=== PATIENT | female | born 1940 | race Caucasian/White ===

== ENCOUNTER 2017-12-10 14:48 | Inpatient (IN) | payer MEDICARE, OTHER ==
--- NOTE | 2017-12-10 15:24 | ED ---
General Adult HPI <RudiYvon - Last Filed: 12/10/17 16:27> - General Source: patient, RN notes reviewed Mode of arrival: ambulatory Limitations: no limitations <Randa Grayson - Last Filed: 12/10/17 18:50> - General Chief complaint: Animal Bite Stated complaint: cat bite Time Seen by Provider: 12/10/17 15:00 - History of Present Illness Initial comments: Patient is a 77-year-old female with history of carpal tunnel and diabetes who presents to the emergency department with her niece with complaints of a cat bite to her right hand that happened 3 days ago. She has seen her doctor and was given a shot of Augmentin and started on oral Augmentin as well. The oral Augmentin gave her diarrhea and it was stopped. She was given another shot of Augmentin by her physician yesterday. She has been using Bactrim ointment over the wound. She was told to come here as she may need IV antibiotics because the redness and swelling have worsened. Her last Tetanus was 2012. The cat was her own and is up to date on its vaccines, including rabies. She admits to numbness of her right fingers, which is chronic. Patient denies any recent fever , chills, shortness of breath, chest pain, back pain, abdominal pain, tingling, headaches or visual changes, or any other complaints. (Randa Grayson) - Related Data Home Medications Medication Instructions Recorded Confirmed Atorvastatin [Lipitor] 40 mg PO HS 12/14/13 12/10/17 Docusate Sodium [Dulcolax Stool 100 mg PO Q48H 12/14/13 12/10/17 Softener] Isosorbide Mononitrate [Imdur] 30 mg PO HS 12/14/13 12/10/17 Potassium Chloride [Klor-Con 20] 20 meq PO DAILY@1200 12/14/13 12/10/17 Verapamil HCl [Verapamil ER] 180 mg PO HS 12/14/13 12/10/17 rOPINIRole HCL [Requip] 0.25 mg PO BID@0800,1200 12/14/13 12/10/17 Multivitamins, Thera [Theragran] 1 tab PO DAILY@1200 11/15/14 12/10/17 Furosemide [Lasix] 20 mg PO DAILY@0800 05/12/15 12/10/17 Lansoprazole 30 mg PO BID 05/12/15 12/10/17 sitaGLIPtin PHOS/metFORMIN HCL 1 tab PO BID 05/12/15 12/10/17 [Janumet 50-500 mg Tablet] Cholecalciferol (Vitamin D3) 2,000 unit PO DAILY 12/10/17 12/10/17 [Vitamin D3] Dulaglutide [Trulicity] 0.75 mg SQ Q7D 12/10/17 12/10/17 Famotidine 40 mg PO DAILY@0800 12/10/17 12/10/17 Gabapentin [Neurontin] 300 mg PO BID 12/10/17 12/10/17 Levothyroxine Sodium [Synthroid] 137 mcg PO DAILY 12/10/17 12/10/17 Losartan [Cozaar] 25 mg PO DAILY@0800 12/10/17 12/10/17 metFORMIN HCL [Glucophage] 500 mg PO BID 12/10/17 12/10/17 rOPINIRole HCL [Requip] 0.5 mg PO HS 12/10/17 12/10/17 Allergies Allergy/AdvReac Type Severity Reaction Status Date / Time pantoprazole Allergy Unknown Rash/Hives Verified 12/10/17 15:57 glyxamber Allergy Rash/Hives Uncoded 12/10/17 14:55 Review of Systems ROS Other: All systems not noted in ROS Statement are negative. <Yvon Grijalva - Last Filed: 12/10/17 16:27> ROS Other: All systems not noted in ROS Statement are negative. <Randa Grayson - Last Filed: 12/10/17 18:50> ROS Statement: Those systems with pertinent positive or pertinent negative responses have been documented in the HPI. Past Medical History Past Medical History: Cancer, CVA/TIA, Diabetes Mellitus, GERD/Reflux, Hearing Disorder / Deafness, Hypertension, Pneumonia, Thyroid Disorder Additional Past Medical History / Comment(s): Possible TIA-no weakness or paralysis, vaginal cancer, chronic yeast infection in abdominal fold, neuropathy both legs, mary alice carpal tunnel, arthritis, frequent UTI's, arrythmia, Swelling in legs and feet, Hx of cellulitis legs, Barretts esophagus. , Pneumonia (2014), [place] (cannot wear her hearing aids because of ringing in her ears. History of Any Multi-Drug Resistant Organisms: None Reported Past Surgical History: Appendectomy, Section, Hysterectomy Additional Past Surgical History / Comment(s): removal of vaginal tumor, cataract bilateral , vaginal ablation x2. Past Anesthesia/Blood Transfusion Reactions: No Reported Reaction Additional Past Anesthesia/Blood Transfusion Reaction / Comment(s): family hx unknown. PATIENTS HAS PROBLEM WITH HYPOGLYCEMIA EPISODE WHEN COMING OUT OF SURGERY. Past Psychological History: No Psychological Hx Reported Smoking Status: Never smoker Past Alcohol Use History: None Reported Past Drug Use History: None Reported - Past Family History Mother Family Medical History: CVA/TIA Father Family Medical History: Coronary Artery Disease (CAD) <Randa Grayson - Last Filed: 12/10/17 18:50> General Exam Limitations: no limitations General appearance: alert, in no apparent distress Head exam: Present: atraumatic, normocephalic Eye exam: Present: normal appearance, PERRL ENT exam: Present: normal oropharynx Respiratory exam: Present: normal lung sounds bilaterally Cardiovascular Exam: Present: regular rate, normal rhythm, other (Radial pulses are palpable and strong bilaterally.) GI/Abdominal exam: Present: soft, normal bowel sounds Extremities exam: Present: normal capillary refill, other (Some limitation of finger flexion of right hand due to swelling.) Neurological exam: Present: alert, oriented X3 Psychiatric exam: Present: normal affect, normal mood Skin exam: Present: warm, dry, other (Right hand with scab over posterior aspect. The right posterior hand is erythematous, edematous and tender to palpation. She reports numbness to the right little finger during the examination.) <Randa Grayson - Last Filed: 12/10/17 18:50> Course <Yvon Grijalva - Last Filed: 12/10/17 16:27> <Randa Grayson - Last Filed: 12/10/17 18:50> Vital Signs 12/10/17 12/10/17 14:50 17:36 Temperature 97.5 F L Pulse Rate 105 H 90 Respiratory 18 18 Rate Blood Pressure 164/87 144/97 O2 Sat by Pulse 98 95 Oximetry - Reevaluation(s) Reevaluation #1: 12/10/17 16:27 Patient reevaluated by myself, Dr. Grijalva. Patient does have puncture wound right dorsal mid hand with cellulitic changes extending to the right forearm. Patient updated on results and plan. Patient does meet sepsis criteria diagnosed at 1600. Blood culture and lactic acid and IV antibiotics and fluid boluses have all been ordered. Case was discussed in detail with Dr. Mustafa, who will admit for Dr. Lau. (Yvon Grijalva) Medical Decision Making - Lab Data Result diagrams: 12/10/17 15:41 12/10/17 15:41 <Yvon Grijalva - Last Filed: 12/10/17 16:27> - Lab Data Result diagrams: 12/10/17 15:41 12/10/17 15:41 <Randa Grayson - Last Filed: 12/10/17 18:50> - Medical Decision Making Patient is a 77 year old female with a cat bite. WBC 11.2. Venous Plasma Lactic Acid 2.9. Glucose 177. Hand X-ray reveals dorsal soft tissue swelling; otherwise negative. Patient started on Unasyn. Will be admitted to inpatient. Case discussed in detail with attending physician Dr. Grijalva. (Randa Grayson ) - Lab Data Lab Results 12/10/17 12/10/17 12/10/17 Range/Units 15:41 15:41 15:41 WBC 11.2 H (3.8-10.6) k/uL RBC 4.20 (3.80-5.40) m/uL Hgb 13.1 (11.4-16.0) gm/dL Hct 40.0 (34.0-46.0) % MCV 95.4 (80.0-100.0) fL MCH 31.2 (25.0-35.0) pg MCHC 32.8 (31.0-37.0) g/dL RDW 12.8 (11.5-15.5) % Plt Count 289 (150-450) k/uL Neutrophils % 74 % Lymphocytes % 9 % Monocytes % 14 % Eosinophils % 2 % Basophils % 0 % Neutrophils # 8.2 H (1.3-7.7) k/uL Lymphocytes # 1.0 (1.0-4.8) k/uL Monocytes # 1.6 H (0-1.0) k/uL Eosinophils # 0.2 (0-0.7) k/uL Basophils # 0.0 (0-0.2) k/uL Sodium 139 (137-145) mmol/L Potassium 4.5 (3.5-5.1) mmol/L Chloride 100 (98-107) mmol/L Carbon Dioxide 25 (22-30) mmol/L Anion Gap 14 mmol/L BUN 18 H (7-17) mg/dL Creatinine 0.61 (0.52-1.04) mg/dL Est GFR (CKD-EPI)AfAm >90 (>60 ml/min/1.73 sqM) Est GFR (CKD-EPI)NonAf 89 (>60 ml/min/1.73 sqM) Glucose 177 H (74-99) mg/dL Plasma Lactic Acid Bob 2.9 H* (0.7-2.0) mmol/L Calcium 9.8 (8.4-10.2) mg/dL Total Bilirubin 0.8 (0.2-1.3) mg/dL AST 21 (14-36) U/L ALT 19 (9-52) U/L Alkaline Phosphatase 77 (38-126) U/L Total Protein 7.7 (6.3-8.2) g/dL Albumin 4.1 (3.5-5.0) g/dL Disposition <Yvon Grijalva - Last Filed: 12/10/17 16:27> Is patient prescribed a controlled substance at d/c from ED?: No Time of Disposition: 17:21 <Randa Grayson - Last Filed: 12/10/17 18:50> Clinical Impression: Cat bite Disposition: ADMITTED IP TO THIS HOSP Condition: Good
[2017-12-10] MEDS ORDERED: SODIUM CHLORIDE 0.9% 500 ML 500 ML IV STA (15:30)
[2017-12-10] MEDS ORDERED: SODIUM CHLORIDE 0.9% 1,000 ML IV STA ×2 (15:30→16:25)
[2017-12-10 15:54] LABS: Basophils % (A) 0 %; Eosinophils # (A) 0.2 k/uL (0-0.7); Eosinophils % (A) 2 %; HGB 13.1 gm/dL (11.4-16.0); Lymphocytes % (A) 9 %; MCH 31.2 pg (25.0-35.0); MCHC 32.8 g/dL (31.0-37.0); MCV 95.4 fL (80.0-100.0); Mean Platelet Volume 8.3; Monocytes # (A) 1.6 k/uL (0-1.0); Monocytes % (A) 14 %; Neutrophils # (A) 8.2 k/uL (1.3-7.7); Neutrophils % (A) 74 %; Platelet Count 289 k/uL (150-450); RDW 12.8 % (11.5-15.5); WBC 11.2 k/uL (3.8-10.6)
[2017-12-10 16:01] LABS: ALT 19 U/L (9-52); AST 21 U/L (14-36); Albumin 4.1 g/dL (3.5-5.0); Alkaline Phosphatase 77 U/L (38-126); Anion Gap 14 mmol/L; Blood Urea Nitrogen 18 mg/dL (7-17); Calcium 9.8 mg/dL (8.4-10.2); Carbon Dioxide 25 mmol/L (22-30); Chloride 100 mmol/L (98-107); Glucose 177 mg/dL (74-99); Potassium 4.5 mmol/L (3.5-5.1); Sodium 139 mmol/L (137-145); Total Bilirubin 0.8 mg/dL (0.2-1.3); Total Protein 7.7 g/dL (6.3-8.2)
[2017-12-10] MEDS ORDERED: AMPICILLIN-SULBACTAM 3 GM in SODIUM CHLORIDE 0.9% 100 ML IVPB STA (16:30)
--- NOTE | 2017-12-10 16:30 | XR ---
EXAMINATION TYPE: XR hand complete RT DATE OF EXAM: 12/10/2017 CLINICAL HISTORY: pain TECHNIQUE: Frontal, lateral and oblique images of the right hand are obtained. COMPARISON: None. FINDINGS: There is no acute fracture/dislocation evident. The joint spaces appear narrowed. Dorsal s oft tissue swelling noted which may reflect cellulitis. No radiopaque foreign body seen. IMPRESSION: There is no acute fracture or dislocation ICD 10 NO FRACTURE, INITIAL EVALUATION
[2017-12-10] MEDS ORDERED: NALOXONE 0.4 MG/ML 1 ML VIAL IV PRN (17:22)
[2017-12-10 21:38] LABS: Glucose,Whole Blood 159 mg/dL (75-99)
[2017-12-10] MEDS ORDERED: VANCOMYCIN IV PER PHARMACY 1 EACH MISC MISCELLANE PRN (21:38)
[2017-12-10] MEDS ORDERED: MELATONIN 3 MG TABLET PO PRN (21:39)
[2017-12-10] MEDS ORDERED: ONDANSETRON 4 MG/2 ML VIAL IVP PRN (21:39)
[2017-12-10] MEDS ORDERED: ACETAMINOPHEN TAB 325 MG TAB PO PRN (21:39)
[2017-12-10] MEDS ORDERED: LACTULOSE 20 GM/30 ML CUP PO PRN (21:39)
[2017-12-10] MEDS ORDERED: MAGNESIUM HYDROXIDE 2,400 MG/10 ML CUP PO PRN (21:39)
[2017-12-10] MEDS ORDERED: CALCIUM CARBONATE 500 MG CHEWABLE PO PRN (21:39)
[2017-12-10] MEDS ORDERED: ALPRAZolam 0.25 MG TAB PO PRN (21:39)
--- NOTE | 2017-12-10 23:22 | HP ---
HISTORY AND PHYSICAL DATE OF ADMISSION: 12/10/2017 DATE OF SERVICE: 12/10/2017 PRESENTING COMPLAINT: Cat bite. HISTORY OF PRESENTING COMPLAINT: This is a very pleasant 77-year-old patient of Dr. Lau. Chronic stable medical conditions include diabetes, GERD, hard of hearing, hyperlipidemia, hypertension, peripheral neuropathy, osteoarthritis, Freeman's esophagus, restless legs syndrome. The patient has got a cat that she has had for 3 years, was sleeping next to it. The patient moved her right arm to hold the cat while sleeping and the cat bit the arm 3 days ago. The patient went down to see her family doctor, was given an IV/IM injection, returned home. The next day patient went again, was given Augmentin. Patient started throwing up with the Augmentin. Hand started getting worse. Took her back. Patient was then sent in because the right hand pain and swelling was getting worse. There was no fever, no chills. Having failed outpatient treatment, right hand is swollen, rather painful, including some of the fingers, and redness is going more proximally. Patient was given IV Unasyn in the ER. There was no obvious fever at home. REVIEW OF SYSTEMS: CONSTITUTIONAL: Tired. HEENT: Decreased hearing. RESPIRATORY: None. CARDIOVASCULAR: None. GASTROINTESTINAL: Heartburn. GENITOURINARY: None. MUSCULOSKELETAL: None. DERMATOLOGICAL: As above. LYMPHATICS: None. PSYCHIATRY: None. NEUROLOGICAL: Numbness and tingling in the feet. PAST MEDICAL HISTORY: 1. TIA. 2. Diabetes. 3. GERD. 4. Hard of hearing. 5. Hypertension. 6. Hypothyroidism. 7. Vaginal cancer. 8. Peripheral neuropathy. 9. Osteoarthritis. 10.Freeman's esophagus. 11.Restless legs syndrome. PAST SURGICAL HISTORY: 1. Appendectomy. 2. . 3. Hysterectomy. 4. Removal of vaginal tumor. 5. Cataract, bilateral. SOCIAL HISTORY: No smoking. No alcohol. Lives with her handicapped daughter. FAMILY HISTORY: Stroke. HOME MEDICATIONS: 1. Janumet 50/500 one tablet p.o. b.i.d. 2. Requip 0.5 mg at bedtime and 0.25 mg p.o. b.i.d. 3. Glucophage 500 mg p.o. b.i.d. 4. Verapamil ER 180 mg at bedtime. 5. Klor-Con 20 mEq p.o. daily. 6. Theragran 1 tablet p.o. daily. 7. Cozaar 25 mg daily. 8. Synthroid 137 mcg p.o. daily. 9. Lansoprazole 30 mg p.o. b.i.d. 10.Imdur 30 mg at bedtime. 11.Neurontin 300 mg b.i.d. 12.Lasix 20 mg p.o. daily. 13.Pepcid 40 mg p.o. daily. 14.Trulicity 0.75 mg subcutaneously q.7 days. 15.Colace 100 mg q.48 hours. 16.Vitamin D3 2000 units p.o. daily. 17.Lipitor 40 mg at bedtime. ALLERGIES: 1. PANTOPRAZOLE. 2. GLYXAMBER. PHYSICAL EXAMINATION: Temperature 97.5, pulse 105, respiration 18, blood pressure 164/87, pulse ox 98% on room air. GENERAL APPEARANCE: Average build. Lying in bed, awake. EYES: Pupils equal. Conjunctivae normal. HEENT: External appearance of nose and ears normal. Oral cavity normal. Decreased hearing. NECK: JVD not raised. Mass not palpable. RESPIRATORY: Effort normal. LUNGS: Fair air entry. CARDIOVASCULAR: First and second sounds normal. No edema. ABDOMEN: Soft, non-tender. Liver and spleen not palpable. LYMPHATIC: No lymph node palpable in neck or axillae. PSYCHIATRY: Alert and oriented x3. Mood and affect normal. DERMATOLOGICAL/MUSCULOSKELETAL: Right hand is swollen. There is a bite miriam in the dorsum of the hand. There is swelling on the dorsum extending to the proximal part of the fingers and the distal part of the forearm, redness, tenderness. Patient has got some movement in the fingers. INVESTIGATIONS: White count 11.2, hemoglobin 13.1, potassium 4.5, BUN 18, creatinine 0.61. ASSESSMENT: 1. Acute right hand cellulitis; could be superficial abscess following a cat bite. Having failed outpatient antibiotic injection and not able to tolerate oral Augmentin, was hence admitted for the same. Patient was started on IV Unasyn. Will also add IV vancomycin. Will also use Silvadene dressing with Kerlix and Chaitanya wrap and keep the right arm elevated. We will also add naproxen for anti- inflammatory benefit. 2. Diabetes mellitus, type 2, on oral hypoglycemic. 3. Gastroesophageal reflux disease. 4. Hard of hearing. 5. Essential hypertension. 6. Hypothyroidism. 7. Peripheral neuropathy from diabetes. 8. Primary osteoarthritis. 9. Freeman's esophagus. 10.Restless legs syndrome. PLAN: Home medications are resumed. Antibiotics and local wound care as above. Will also get orthopedic opinion to see if anything needs to be drained. Care was discussed with the patient and niece at the bedside. Questions were answered. MMJENNIFERL / IJN: [id number] /
[2017-12-10] MEDS: metFORMIN 500 MG TAB PO SCH (23:42)
[2017-12-10] MEDS: VERAPAMIL SR 180 MG TABLET.ER PO SCH (23:42)
[2017-12-10] MEDS: ISOSORBIDE MONONITRATE ER 30 MG TAB.ER.24H PO SCH (23:42)
[2017-12-10] MEDS: GABAPENTIN 300 MG CAP PO SCH (23:42)
[2017-12-10] MEDS: ATORVASTATIN 40 MG TAB PO SCH (23:42)
[2017-12-10] MEDS: SODIUM CHLORIDE 0.9% 1,000 ML IV SCH (23:42)
[2017-12-10] MEDS: NAPROXEN 250 MG TAB PO SCH (23:43)
[2017-12-10] MEDS: ENOXAPARIN 40 MG/0.4 ML SYRINGE SQ SCH (23:43)
[2017-12-10] MEDS: AMPICILLIN-SULBACTAM 3 GM in SODIUM CHLORIDE 0.9% 100 ML IVPB SCH (23:57)
[2017-12-11] MEDS: VANCOMYCIN 1,500 MG in SODIUM CHLORIDE 0.9% 250 ML IVPB SCH ×3 (00:36→20:04)
[2017-12-11] MEDS: AMPICILLIN-SULBACTAM 3 GM in SODIUM CHLORIDE 0.9% 100 ML IVPB SCH ×4 (06:37→23:18)
[2017-12-11] MEDS: LEVOTHYROXINE 137 MCG TAB PO SCH (06:39)
[2017-12-11 07:02] LABS: Glucose,Whole Blood 178 mg/dL (75-99)
[2017-12-11] MEDS ORDERED: LANSOPRAZOLE 30 MG PO SCH ×2 (07:30→14:00)
[2017-12-11] MEDS: NAPROXEN 250 MG TAB PO SCH ×3 (07:56→20:04)
[2017-12-11] MEDS: GABAPENTIN 300 MG CAP PO SCH ×2 (07:57→20:04)
[2017-12-11] MEDS: LOSARTAN 25 MG TAB PO SCH (07:57)
[2017-12-11] MEDS: LINAGLIPTIN 5 MG TABLET PO SCH (07:57)
[2017-12-11] MEDS: FAMOTIDINE 20 MG TAB PO SCH (07:57)
[2017-12-11] MEDS: metFORMIN 500 MG TAB PO SCH ×2 (07:57→17:18)
--- NOTE | 2017-12-11 09:50 | P.CNOR ---
History of Present Illness - HPI Consult date: 12/11/17 History of present illness: This is a 77-year-old female who is admitted for an infection in right hand. Patient states that she was petting her cat 3 days ago and it bit her. Patient states that she started to have pain and swelling in the right wrist. Patient failed outpatient treatment and infection was worsening so she was admitted for IV antibiotics. Orthopedics is consulted for surgical evaluation. Patient denies any numbness, weakness, tingling, fever or chills. Review of Systems See HPI. Past Medical History Past Medical History: Cancer, CVA/TIA, Diabetes Mellitus, GERD/Reflux, Hearing Disorder / Deafness, Hypertension, Pneumonia, Thyroid Disorder Additional Past Medical History / Comment(s): Possible TIA-no weakness or paralysis, vaginal cancer, chronic yeast infection in abdominal fold, neuropathy both legs, mary alice carpal tunnel, arthritis, frequent UTI's, arrythmia, Swelling in legs and feet, Hx of cellulitis legs, Barretts esophagus. , Pneumonia (2013), [place] ( hearing aids no longer work for her), ringing in her ears. History of Any Multi-Drug Resistant Organisms: None Reported Past Surgical History: Appendectomy, Section, Hysterectomy Additional Past Surgical History / Comment(s): removal of vaginal tumor, cataract bilateral , vaginal ablation x2.egd/colonoscopy Past Anesthesia/Blood Transfusion Reactions: No Reported Reaction Additional Past Anesthesia/Blood Transfusion Reaction / Comm: family hx unknown. PATIENTS HAS PROBLEM WITH HYPOGLYCEMIA EPISODE WHEN COMING OUT OF SURGERY. Smoking Status: Never smoker - Past Family History Mother Family Medical History: CVA/TIA Father Family Medical History: Coronary Artery Disease (CAD) Medications and Allergies Home Medications Medication Instructions Recorded Confirmed Type Atorvastatin [Lipitor] 40 mg PO HS 12/14/13 12/10/17 History Docusate Sodium [Dulcolax Stool 100 mg PO Q48H 12/14/13 12/10/17 History Softener] Isosorbide Mononitrate [Imdur] 30 mg PO HS 12/14/13 12/10/17 History Potassium Chloride [Klor-Con 20] 20 meq PO DAILY@1200 12/14/13 12/10/17 History Verapamil HCl [Verapamil ER] 180 mg PO HS 12/14/13 12/10/17 History rOPINIRole HCL [Requip] 0.25 mg PO BID@0800,1200 12/14/13 12/10/17 History Multivitamins, Thera [Theragran] 1 tab PO DAILY@1200 11/15/14 12/10/17 History Furosemide [Lasix] 20 mg PO DAILY@0800 05/12/15 12/10/17 History Lansoprazole 30 mg PO BID 05/12/15 12/10/17 History sitaGLIPtin PHOS/metFORMIN HCL 1 tab PO BID 05/12/15 12/10/17 History [Janumet 50-500 mg Tablet] Cholecalciferol (Vitamin D3) 2,000 unit PO DAILY 12/10/17 12/10/17 History [Vitamin D3] Dulaglutide [Trulicity] 0.75 mg SQ Q7D 12/10/17 12/10/17 History Famotidine 40 mg PO DAILY@0800 12/10/17 12/10/17 History Gabapentin [Neurontin] 300 mg PO BID 12/10/17 12/10/17 History Levothyroxine Sodium [Synthroid] 137 mcg PO DAILY 12/10/17 12/10/17 History Losartan [Cozaar] 25 mg PO DAILY@0800 12/10/17 12/10/17 History metFORMIN HCL [Glucophage] 500 mg PO BID 12/10/17 12/10/17 History rOPINIRole HCL [Requip] 0.5 mg PO HS 12/10/17 12/10/17 History Allergies Allergy/AdvReac Type Severity Reaction Status Date / Time pantoprazole Allergy Unknown Rash/Hives Verified 12/10/17 15:57 glyxamber Allergy Rash/Hives Uncoded 12/10/17 14:55 Physical Examination On exam patient is alert resting comfortably in bed in no acute distress. Dressing is removed revealing a small puncture wound to the dorsum of the right hand. There is surrounding erythema and mild swelling. Patient has pain with range of motion of the wrist and hand. Compartments are soft. Sensation is intact. Neurovascular status and circulatory status are intact. Results X-rays of the right hand are negative for any fracture or foreign body. - Labs Labs: Abnormal Lab Results - Last 24 Hours (Table) 12/10/17 12/10/17 12/10/17 Range/Units 15:41 15:41 15:41 WBC 11.2 H (3.8-10.6) k/uL Neutrophils # 8.2 H (1.3-7.7) k/uL Monocytes # 1.6 H (0-1.0) k/uL BUN 18 H (7-17) mg/dL Glucose 177 H (74-99) mg/dL POC Glucose (mg/dL) (75-99) mg/dL Plasma Lactic Acid Bob 2.9 H* (0.7-2.0) mmol/L 12/10/17 12/10/17 12/11/17 Range/Units 20:28 21:36 06:59 WBC (3.8-10.6) k/uL Neutrophils # (1.3-7.7) k/uL Monocytes # (0-1.0) k/uL BUN (7-17) mg/dL Glucose (74-99) mg/dL POC Glucose (mg/dL) 159 H 178 H (75-99) mg/dL Plasma Lactic Acid Bob 2.2 H* (0.7-2.0) mmol/L H & H 12/10/17 Range/Units 15:41 Hgb 13.1 (11.4-16.0) gm/dL Hct 40.0 (34.0-46.0) % Result Diagrams: 12/10/17 15:41 12/10/17 15:41 Assessment and Plan (1) Cellulitis of hand Current Visit: Yes Status: Acute Code(s): L03.119 - CELLULITIS OF UNSPECIFIED PART OF LIMB SNOMED Code(s): 97080324 (2) Cat bite Current Visit: Yes Status: Acute Code(s): W55.01XA - BITTEN BY CAT, INITIAL ENCOUNTER SNOMED Code(s): 806835483 Plan: 1. Continue antibiotics along with warm compresses to the right hand. 2. Elevate the right upper extremity. 3. No surgical intervention planned. Will continue to follow.
[2017-12-11 10:36] LABS: Basophils % (A) 0 %; Eosinophils # (A) 0.1 k/uL (0-0.7); Eosinophils % (A) 1 %; HCT 36.2 % (34.0-46.0); Lymphocytes # (A) 0.6 k/uL (1.0-4.8); Lymphocytes % (A) 6 %; MCH 29.7 pg (25.0-35.0); MCHC 30.4 g/dL (31.0-37.0); MCV 97.5 fL (80.0-100.0); Mean Platelet Volume 8.5; Monocytes # (A) 1.8 k/uL (0-1.0); Monocytes % (A) 19 %; Neutrophils % (A) 73 %; Platelet Count 254 k/uL (150-450); RBC 3.71 m/uL (3.80-5.40); RDW 12.6 % (11.5-15.5); WBC 9.6 k/uL (3.8-10.6)
[2017-12-11 10:57] LABS: Anion Gap 11 mmol/L; Blood Urea Nitrogen 16 mg/dL (7-17); Calcium 8.7 mg/dL (8.4-10.2); Carbon Dioxide 22 mmol/L (22-30); Chloride 104 mmol/L (98-107); Glucose 189 mg/dL (74-99); Potassium 4.1 mmol/L (3.5-5.1); Sodium 137 mmol/L (137-145)
[2017-12-11] MEDS: MULTIVITAMINS, THERA 1 EACH TAB PO SCH (11:09)
[2017-12-11] MEDS: POTASSIUM CHLORIDE ER 20 MEQ TAB.ER PO SCH (11:09)
[2017-12-11 12:26] LABS: Glucose,Whole Blood 186 mg/dL (75-99)
[2017-12-11 17:07] LABS: Glucose,Whole Blood 218 mg/dL (75-99)
[2017-12-11] MEDS: SODIUM CHLORIDE 0.9% 1,000 ML IV SCH ×2 (17:21→20:07)
[2017-12-11] MEDS: LANSOPRAZOLE 30 MG PO SCH (20:03)
[2017-12-11] MEDS: ATORVASTATIN 40 MG TAB PO SCH (20:03)
[2017-12-11] MEDS: VERAPAMIL SR 180 MG TABLET.ER PO SCH (20:04)
[2017-12-11] MEDS: ENOXAPARIN 40 MG/0.4 ML SYRINGE SQ SCH (20:04)
[2017-12-11] MEDS: ISOSORBIDE MONONITRATE ER 30 MG TAB.ER.24H PO SCH (20:04)
[2017-12-11 20:44] LABS: Glucose,Whole Blood 163 mg/dL (75-99)
--- NOTE | 2017-12-11 23:26 | PN ---
PROGRESS NOTE DATE OF SERVICE: 12/11/2017 PRESENTING COMPLAINT: Cat bite. Swelling. Redness. INTERVAL HISTORY: This patient with cat bite with swelling, redness, swelling of the right hand. Chronic redness has gone down a bit. The patient is getting local treatment with compression dressing. Did tolerate a diet. REVIEW OF SYSTEMS: Done for constitutional, cardiovascular, GI, pulmonary and relevant findings as above. CURRENT MEDICATIONS: Reviewed that include IV Unasyn and vancomycin. PHYSICAL EXAMINATION: VITAL SIGNS: Temperature 97.5, pulse 80, respiration 20, blood pressure 120/71, pulse ox 90 percent room air. GENERAL APPEARANCE: Lying in bed comfortable. Awake. EYES: Pupils equal. Conjunctivae normal. HEENT: External appearance of nose and ears normal. Oral cavity normal. Decreased hearing. Neck JVD not raised. Mass not palpable. Respiratory effort normal. Lungs are clear CARDIOVASCULAR: 1st and 2nd sounds normal. No edema. ABDOMEN: Soft, nontender. Liver and spleen not palpable. LYMPHATICS: No lymph nodes palpable in the neck and axilla. Dermatological: Dressing over the right hand. The patient did tell me earlier that the redness and swelling has gone down. The dressing was done. INVESTIGATIONS: White count 9.6, hemoglobin 11, potassium 4.1 Accu-Cheks are noted. ASSESSMENT: 1. Acute right hand cellulitis secondary to cat bite, having failed outpatient treatment, responding well to the current treatment. 2. Diabetes mellitus type 2 on oral hypoglycemics. 3. Gastroesophageal reflux disease. 4. Hard of hearing. 5. Essential hypertension. 6. Hypothyroidism. 7. Neuropathy from diabetes. 8. Primary osteoarthritis. 9. Freeman's esophagus. 10.Restless legs syndrome. PLAN: Continue with IV Unasyn, IV vancomycin and telemetry. Care was discussed the patient. Patient is clinically responding. Followup. MMODL / IJN: [id number] /
[2017-12-12] MEDS: AMPICILLIN-SULBACTAM 3 GM in SODIUM CHLORIDE 0.9% 100 ML IVPB SCH ×3 (05:50→17:52)
[2017-12-12] MEDS: LANSOPRAZOLE 30 MG PO SCH ×2 (05:51→23:28)
[2017-12-12] MEDS: LEVOTHYROXINE 137 MCG TAB PO SCH (06:04)
[2017-12-12] MEDS: metFORMIN 500 MG TAB PO SCH ×2 (07:36→16:44)
[2017-12-12] MEDS: NAPROXEN 250 MG TAB PO SCH ×3 (07:36→21:58)
[2017-12-12] MEDS: GABAPENTIN 300 MG CAP PO SCH ×2 (07:36→21:58)
[2017-12-12] MEDS: LOSARTAN 25 MG TAB PO SCH (07:36)
[2017-12-12] MEDS: FAMOTIDINE 20 MG TAB PO SCH (07:36)
[2017-12-12] MEDS: LINAGLIPTIN 5 MG TABLET PO SCH (07:36)
[2017-12-12 07:38] LABS: Glucose,Whole Blood 142 mg/dL (75-99)
[2017-12-12] MEDS: VANCOMYCIN 1,500 MG in SODIUM CHLORIDE 0.9% 250 ML IVPB SCH (07:40)
--- NOTE | 2017-12-12 09:20 | P.PN ---
Subjective Progress Note Date: 12/12/17 This is a 77-year-old female who is admitted for cellulitis of the right hand after a cat bite. Patient is seen and evaluated at bedside. Patient reports improvement in pain, redness and swelling. Patient states that she is able to move the fingers of her right hand more today. Patient denies any new complaints, fever/chills, numbness, weakness or tingling. Objective - Vital Signs Vital signs: Vital Signs Temp 98.3 F 12/12/17 07:00 Pulse 74 12/12/17 07:00 Resp 16 12/12/17 07:00 BP 132/76 12/12/17 07:00 Pulse Ox 91 L 12/12/17 07:00 Intake & Output 12/11/17 12/12/17 12/12/17 18:59 06:59 18:59 Intake Total 200 200 Balance 200 200 Intake: Oral 200 200 Other: Voiding Method Toilet # Voids 3 2 # Bowel Movements 2 - Exam On exam patient is alert and resting comfortably in bed in no acute distress. There is minimal erythema to the dorsum of the right hand. There is no active drainage. There is mild swelling to the right hand and fingers. Range of motion of the fingers of the right hand has improved since yesterday's exam. Capillary refill is normal at less than 2 seconds. Sensation is intact. Neurovascular status to telemetry status are intact. - Labs CBC & Chem 7: 12/11/17 09:29 12/11/17 09:29 Labs: Abnormal Lab Results - Last 24 Hours (Table) 12/11/17 12/11/17 12/11/17 Range/Units 09:29 09:29 12:20 RBC 3.71 L (3.80-5.40) m/uL Hgb 11.0 L (11.4-16.0) gm/dL MCHC 30.4 L (31.0-37.0) g/dL Lymphocytes # 0.6 L (1.0-4.8) k/uL Monocytes # 1.8 H (0-1.0) k/uL Glucose 189 H (74-99) mg/dL POC Glucose (mg/dL) 186 H (75-99) mg/dL 12/11/17 12/11/17 12/12/17 Range/Units 17:01 20:37 07:32 RBC (3.80-5.40) m/uL Hgb (11.4-16.0) gm/dL MCHC (31.0-37.0) g/dL Lymphocytes # (1.0-4.8) k/uL Monocytes # (0-1.0) k/uL Glucose (74-99) mg/dL POC Glucose (mg/dL) 218 H 163 H 142 H (75-99) mg/dL Microbiology - Last 24 Hours (Table) 12/10/17 15:41 Blood Culture - Preliminary Blood No Growth after 24 hours Assessment and Plan Assessment: Diabetes mellitus GERD Hypertension Hypothyroidism Neuropathy Restless leg syndrome Osteoarthritis (1) Cellulitis of hand Current Visit: Yes Status: Acute Code(s): L03.119 - CELLULITIS OF UNSPECIFIED PART OF LIMB SNOMED Code(s): 04274489 (2) Cat bite Current Visit: Yes Status: Acute Code(s): W55.01XA - BITTEN BY CAT, INITIAL ENCOUNTER SNOMED Code(s): 140922992 Plan: 1. Continue antibiotics along with warm compresses to the right hand. 2. Elevate the right upper extremity. 3. No surgical intervention planned. Will continue to follow.
[2017-12-12 09:36] LABS: Basophils % (A) 0 %; Eosinophils # (A) 0.1 k/uL (0-0.7); Eosinophils % (A) 2 %; HGB 11.2 gm/dL (11.4-16.0); Hypochromasia Slight; Lymphocytes # (A) 0.5 k/uL (1.0-4.8); Lymphocytes % (A) 5 %; MCH 30.3 pg (25.0-35.0); MCHC 31.1 g/dL (31.0-37.0); MCV 97.4 fL (80.0-100.0); Mean Platelet Volume 7.7; Monocytes # (A) 1.5 k/uL (0-1.0); Monocytes % (A) 17 %; Neutrophils # (A) 6.6 k/uL (1.3-7.7); Neutrophils % (A) 75 %; Platelet Count 261 k/uL (150-450); RDW 12.6 % (11.5-15.5); WBC 8.8 k/uL (3.8-10.6)
[2017-12-12 12:09] LABS: Glucose,Whole Blood 167 mg/dL (75-99)
[2017-12-12] MEDS: MULTIVITAMINS, THERA 1 EACH TAB PO SCH (12:16)
[2017-12-12] MEDS: POTASSIUM CHLORIDE ER 20 MEQ TAB.ER PO SCH (12:16)
[2017-12-12 17:20] LABS: Glucose,Whole Blood 154 mg/dL (75-99)
--- NOTE | 2017-12-12 19:12 | PN ---
PROGRESS NOTE DATE OF SERVICE: 12/12/2017 PRESENTING COMPLAINT: Cat bite. INTERVAL HISTORY: The patient presented with cat bite, cellulitis of the right hand. Slowly continues to improve. Getting local treatment on IV antibiotics. Did tolerate a diet. The patient is present. The patient had some diarrhea, is actually better. REVIEW OF SYSTEMS: Done for constitutional, cardiovascular, GI, pulmonary; relevant findings as above. CURRENT MEDICATIONS: Reviewed. PHYSICAL EXAMINATION: VITAL SIGNS: Temperature 96.6, pulse 77, respirations 19, blood pressure 122/78, pulse ox 91 percent on room air. GENERAL APPEARANCE: Lying in bed, comfortable, awake. EYES: Pupils are equal. Conjunctivae normal. HEENT: External appearance of nose and ears normal. Oral cavity normal. Decreased hearing. NECK: JVD not raised. Mass not palpable. RESPIRATORY: Effort lungs are clear. CARDIOVASCULAR: 1st and 2nd sounds normal. No edema. ABDOMEN: Soft, nontender. Liver and spleen not palpable. PSYCHIATRY: Alert and oriented times three. Mood and affect normal. DERMATOLOGICAL: Dressing of the right hand. Decreased swelling in the fingers. INVESTIGATIONS: White count 8.8, hemoglobin 11.2. ASSESSMENT: 1. Acute right hand cellulitis secondary to cat bite, having failed outpatient treatment. I spoke to the nurse and aide who had just done the dressing, improving significantly. 2. Diabetes mellitus type 2 on oral hypoglycemics. 3. Gastroesophageal reflux disease. 4. Hard of hearing. 5. Essential hypertension. 6. Hypothyroidism. 7. Peripheral neuropathy from diabetes. 8. Primary osteoarthritis. 9. Freeman's esophagus. 10.Restless legs syndrome. PLAN: Continue current medication and treatment plan. Patient overall doing better. We will switch the patient to oral Augmentin tonight. In fact we will switch the patient over to Bactrim DS tonight. Hopefully patient can be discharged in 24 hours. MMODL / IJN: [id number] /
[2017-12-12 19:21] LABS: Hemoglobin A1C 6.6 % (4.0-6.0)
[2017-12-12] MEDS ORDERED: VANCOMYCIN TROUGH DUE 1 EACH MISC MISCELLANE ONE (20:00)
[2017-12-12 20:57] LABS: Glucose,Whole Blood 119 mg/dL (75-99)
[2017-12-12] MEDS: ISOSORBIDE MONONITRATE ER 30 MG TAB.ER.24H PO SCH (21:58)
[2017-12-12] MEDS: SULFAMETHOX-TMP 800-160MG 1 EACH TAB PO SCH (21:58)
[2017-12-12] MEDS: ATORVASTATIN 40 MG TAB PO SCH (21:58)
[2017-12-12] MEDS: VERAPAMIL SR 180 MG TABLET.ER PO SCH (21:58)
[2017-12-12] MEDS: ENOXAPARIN 40 MG/0.4 ML SYRINGE SQ SCH (22:03)
[2017-12-13] MEDS: LEVOTHYROXINE 137 MCG TAB PO SCH (06:19)
[2017-12-13] MEDS: LANSOPRAZOLE 30 MG PO SCH (06:20)
[2017-12-13 07:27] LABS: Glucose,Whole Blood 184 mg/dL (75-99)
[2017-12-13 07:43] VITALS: BP 142/85; PULSE 75; RESP 16; TEMP 97.1
[2017-12-13] MEDS: GABAPENTIN 300 MG CAP PO SCH (07:43)
[2017-12-13] MEDS: SULFAMETHOX-TMP 800-160MG 1 EACH TAB PO SCH (07:43)
[2017-12-13] MEDS: NAPROXEN 250 MG TAB PO SCH (07:44)
[2017-12-13] MEDS: LOSARTAN 25 MG TAB PO SCH (07:44)
[2017-12-13] MEDS: metFORMIN 500 MG TAB PO SCH (07:45)
[2017-12-13] MEDS: POTASSIUM CHLORIDE ER 20 MEQ TAB.ER PO SCH (07:45)
[2017-12-13] MEDS: LINAGLIPTIN 5 MG TABLET PO SCH (07:45)
[2017-12-13] MEDS: FAMOTIDINE 20 MG TAB PO SCH (07:45)
[2017-12-13 08:42] LABS: Anion Gap 10 mmol/L; Blood Urea Nitrogen 12 mg/dL (7-17); Calcium 8.8 mg/dL (8.4-10.2); Carbon Dioxide 23 mmol/L (22-30); Chloride 107 mmol/L (98-107); Glucose 150 mg/dL (74-99); Potassium 4.5 mmol/L (3.5-5.1); Sodium 140 mmol/L (137-145)
--- NOTE | 2017-12-13 09:18 | P.PN ---
Subjective Progress Note Date: 12/13/17 This is a 77-year-old female who is admitted for cellulitis of the right hand after a cat bite. Patient is seen and evaluated at bedside. Patient reports continued improvement in pain, redness and swelling. Patient denies any new complaints, fever/chills, numbness, weakness or tingling. Objective - Vital Signs Vital signs: Vital Signs Temp 97.1 F L 12/13/17 07:40 Pulse 75 12/13/17 07:40 Resp 16 12/13/17 07:40 BP 142/85 12/13/17 07:40 Pulse Ox 92 L 12/13/17 07:40 Intake & Output 12/12/17 12/13/17 12/13/17 18:59 06:59 18:59 Intake Total 200 Balance 200 Intake: Oral 200 Other: Voiding Method Toilet Toilet Bedpan # Voids 3 3 - Exam On exam patient is alert and resting comfortably in bed in no acute distress. There is minimal erythema to the dorsum of the right hand. There is no active drainage. There is mild swelling to the right hand and fingers. Good range of motion of the fingers of the right hand. Capillary refill is normal at less than 2 seconds. Sensation is intact. Neurovascular status to telemetry status are intact. - Labs CBC & Chem 7: 12/12/17 09:13 12/13/17 07:31 Labs: Abnormal Lab Results - Last 24 Hours (Table) 12/12/17 12/12/17 12/12/17 Range/Units 09:13 09:13 11:57 RBC 3.70 L (3.80-5.40) m/uL Hgb 11.2 L (11.4-16.0) gm/dL Lymphocytes # 0.5 L (1.0-4.8) k/uL Monocytes # 1.5 H (0-1.0) k/uL Creatinine (0.52-1.04) mg/dL Glucose (74-99) mg/dL POC Glucose (mg/dL) 167 H (75-99) mg/dL Hemoglobin A1c 6.6 H (4.0-6.0) % 12/12/17 12/12/17 12/13/17 Range/Units 17:17 20:56 07:25 RBC (3.80-5.40) m/uL Hgb (11.4-16.0) gm/dL Lymphocytes # (1.0-4.8) k/uL Monocytes # (0-1.0) k/uL Creatinine (0.52-1.04) mg/dL Glucose (74-99) mg/dL POC Glucose (mg/dL) 154 H 119 H 184 H (75-99) mg/dL Hemoglobin A1c (4.0-6.0) % 12/13/17 Range/Units 07:31 RBC (3.80-5.40) m/uL Hgb (11.4-16.0) gm/dL Lymphocytes # (1.0-4.8) k/uL Monocytes # (0-1.0) k/uL Creatinine 0.51 L (0.52-1.04) mg/dL Glucose 150 H (74-99) mg/dL POC Glucose (mg/dL) (75-99) mg/dL Hemoglobin A1c (4.0-6.0) % Microbiology - Last 24 Hours (Table) 12/10/17 15:41 Blood Culture - Preliminary Blood No Growth after 48 hours Assessment and Plan Assessment: Diabetes mellitus GERD Hypertension Hypothyroidism Neuropathy Restless leg syndrome Osteoarthritis (1) Cellulitis of hand Current Visit: Yes Status: Acute Code(s): L03.119 - CELLULITIS OF UNSPECIFIED PART OF LIMB SNOMED Code(s): 72691341 (2) Cat bite Current Visit: Yes Status: Acute Code(s): W55.01XA - BITTEN BY CAT, INITIAL ENCOUNTER SNOMED Code(s): 144405520 Plan: 1. Continue antibiotics along with warm compresses to the right hand. 2. Elevate the right upper extremity. 3. No surgical intervention planned. Patient may follow up as an outpatient as needed.
[2017-12-13] MEDS: MULTIVITAMINS, THERA 1 EACH TAB PO SCH (12:23)
[2017-12-13 12:28] LABS: Glucose,Whole Blood 117 mg/dL (75-99)
--- NOTE | 2017-12-14 05:22 | DS ---
DISCHARGE SUMMARY DATE OF ADMISSION: 12/10/2017 DATE OF DISCHARGE: 12/13/2017. FINAL DIAGNOSES: 1. Acute right dorsum hand cellulitis secondary to cat bite, having failed outpatient treatment. 2. Diabetes mellitus type 2 on oral hypoglycemic. 3. Gastroesophageal reflux disease. 4. Hard of hearing. 5. Essential hypertension. 6. Hypothyroidism. 7. Peripheral neuropathy from diabetes. 8. Primary osteoarthritis. 9. Freeman's esophagus. 10.Restless legs syndrome. HOSPITAL COURSE: This patient got bitten by her cat. She by mistake smacked her while she was turned around in the bed. The patient was started on antibiotics as an outpatient for 3 to 4 days by her family doctor, did not respond. Patient having nausea, vomiting, diarrhea with Augmentin. The patient here was started on IV Unasyn and vancomycin to which she responded well. Also topical Silvadene with pressure wraps. The patient is seen by Dr. Austin deemed not for any surgical intervention. The patient's pain, swelling and redness is greatly improved by the time of discharge. PHYSICAL EXAMINATION: Temperature 97.1, pulse 75, respiration 16, blood pressure 142/85, pulse ox 92 percent on 2 L. On exam, the hand redness, swelling greatly improved, minimal to no tenderness. INVESTIGATIONS: White count normal. Care was discussed with the patient and the niece in detail today. Questions were answered. Discussion and discharge planning more than 35 minutes. DISCHARGE MEDICATION: 1. Lipitor 40 mg q.h.s. 2. Imdur 30 mg q.h.s. 3. Potassium 20 mEq a day. 4. Verapamil ER 180 mg q.h.s. 5. Requip 0.5 mg p.o. b.i.d. 6. Multivitamin 1 tablet p.o. daily. 7. Lasix 20 mg p.o. daily. 8. Lansoprazole 20 mg b.i.d. 9. Janumet 50/100 one tablet p.o. b.i.d. 10.Vitamin D3 2000 units p.o. daily. 11.Trulicity 0.75 mg subcu Q 7 days. 12.Pepcid 40 mg p.o. daily. 13.Neurontin 300 mg p.o. b.i.d. 14.Synthroid 137 mcg p.o. daily. 15.Cozaar 25 mg p.o. daily. 16.Glucophage 500 mg p.o. b.i.d. 17.Requip 0.5 mg q.h.s. 18.Bacitracin ointment topical b.i.d. 19.Imodium 2 mg p.o. t.i.d. p.r.n. 20.Naproxen 250 mg p.o. t.i.d. 21.Nystatin powder topical b.i.d. 22.Silvadene cream topical b.i.d. 23.Bactrim DS 1 tablet p.o. b.i.d. for 14 tablets. FOLLOWUP: Follow up with Dr. Lau on 12/20/2017. Labs BMP in 1 week. The patient also advised to use nystatin powder to his groin folds. Copy to Dr. Lau. MMJENNIFERL / IJWilber: [id number] /
== END 2017-12-13 14:29 | disposition home health service (06) | DRG 603 ==
LOC: EC 14:48 → 4MS4W 16:30
PROVIDERS: ADMIT Hospitalist; ATTEND Hospitalist
DX: L03.113 Cellulitis of right upper limb (principal); K52.1 Toxic gastroenteritis and colitis; S61.451A Open bite of right hand, initial encounter; K21.9 Gastro-esophageal reflux disease without esophagitis; I10 Essential (primary) hypertension; H91.90 Unspecified hearing loss, unspecified ear; E03.9 Hypothyroidism, unspecified; G25.81 Restless legs syndrome; K22.70 Barrett's esophagus without dysplasia; E11.42 Type 2 diabetes mellitus with diabetic polyneuropathy; E78.5 Hyperlipidemia, unspecified; M19.91 Primary osteoarthritis, unspecified site; T36.0X5A Adverse effect of penicillins, initial encounter; W55.01XA Bitten by cat, initial encounter; Z79.84 Long term (current) use of oral hypoglycemic drugs; Z86.73 Personal history of transient ischemic attack (TIA), and cerebral infarction without residual deficits; Z98.42 Cataract extraction status, left eye; Z98.41 Cataract extraction status, right eye; Z79.890 Hormone replacement therapy; Z79.899 Other long term (current) drug therapy; Z88.8 Allergy status to other drugs, medicaments and biological substances; Z82.3 Family history of stroke; Z82.49 Family history of ischemic heart disease and other diseases of the circulatory system; Z85.44 Personal history of malignant neoplasm of other female genital organs; Z90.710 Acquired absence of both cervix and uterus; Z87.01 Personal history of pneumonia (recurrent)
CPT/HCPCS: 36415; 80048; 80053; 80202; 83036; 83605; 85025; 87040; 96361; 96365; 96366; 99284

== ENCOUNTER → 2018-04-09 | Outpatient (CLI) | payer MEDICARE, OTHER ==
--- NOTE | 2018-04-10 10:02 | MM ---
Reason for exam: screening (asymptomatic). Last mammogram was performed 1 year and 4 months ago. History: Patient is postmenopausal and has history of other cancer at age 72. Physical Findings: A clinical breast exam by your physician is recommended on an annual basis and results should be correlated with mammographic findings. MG 3D Screening Mammo W/Cad Bilateral CC and MLO view(s) were taken. Prior study comparison: December 05, 2016, bilateral MG 3d screening mammo w/cad. March 18, 2014, left breast MG work up mamm w CAD LT. The breast tissue is heterogeneously dense. This may lower the sensitivity of mammography. Finding: There are typically benign vascular, dystrophic, round, linear calcifications. There is no discrete abnormality. ASSESSMENT: Benign, BI-RAD 2 RECOMMENDATION: Routine screening mammogram of both breasts in 1 year.
== END ==
LOC: RADMAMWWP 08:15
PROVIDERS: ATTEND Family Medicine
DX: Z12.31 Encounter for screening mammogram for malignant neoplasm of breast (principal)
CPT/HCPCS: 77063; 77067

== ENCOUNTER 2018-07-16 08:25 | Day surgery (SDC) | payer MEDICARE, OTHER ==
[2018-07-14 14:49] VITALS: BMI 29.1
[~2018-07-16 08:25] MED LIST: LACTATED RINGERS 1,000 ML IV SCH
[2018-07-16 09:02] VITALS: TEMP 97.5
[2018-07-16] MEDS ORDERED: LIDOCAINE 1% 20 ML VIAL (10MG/ML) FOR IV START INTRADERMA ONE (09:02)
[2018-07-16 09:03] LABS: Glucose,Whole Blood 114 mg/dL (75-99)
[2018-07-16] MEDS ORDERED: LIDOCAINE 1% INJ 10MG/ML (20 ML MDV) ONE (09:26)
[2018-07-16] MEDS ORDERED: PROPOFOL 10 MG/ML 20 ML VIAL IV ONE (09:26)
--- NOTE | 2018-07-16 09:42 | P.PCN ---
Date of Procedure: 07/16/18 Procedure(s) Performed: BRIEF HISTORY: Patient is a 78-year-old, pleasant, white female, scheduled for an upper endoscopy as a part of surveillance of Freeman's esophagus. She had an upper endoscopy in May [address] Meyer which revealed a short segment Freeman's esophagus and biopsy did not show any evidence of intestinal metaplasia. She does have long-standing history of GERD and has been on Prevacid 30 mg twice daily as well as Pepcid at bedtime. She is scheduled for repeat upper endoscopy today as a part of surveillance of that esophagus.. PROCEDURE PERFORMED: Esophagogastroduodenoscopy with biopsy. PREOPERATIVE DIAGNOSIS: Long-standing history of GERD/surveillance of Freeman's esophagus. IV sedation per anesthesia. PROCEDURE: After informed consent was obtained, the patient was brought into the endoscopy unit. IV sedation was administered by Anesthesia under continuous monitoring. Initially the Olympus GIF-140 video endoscope was inserted into the mouth. Esophagus intubated without any difficulty. It was gradually advanced into the stomach and duodenum and carefully examined. The bulb and the second part of the duodenum appeared normal. The scope at this time was withdrawn to the stomach, adequately insufflated with air, and upon careful examination, mucosa of the antrum, body, cardia and the fundus appeared normal. The scope was then withdrawn into the esophagus. The GE junction was located at 35 cm from the incisors. There were 3 tongues of Freeman's-appearing mucosa extending from 34- 35 cm from the incisors and one of the tongues had a small noduactive or centimeters of the incisors, multiple biopsies were done from this area. The rest of the esophagus appeared normal. There were no erosions or ulcerations seen and the patient tolerated the procedure well. IMPRESSION: 1. 3 tongues of Freeman's appearing mucosa extending 1 cm proximal to the GE ju nction, one of the tongues of Freeman's mucosa at 35 cm from the incisors had a small nodule and multiple biopsies were done from this area.. 2. Small sliding Hiatal hernia. RECOMMENDATIONS: The findings of this examination were discussed with the patient as well as a family. She was advised to follow with the biopsy results and she will be seen in the office in 2 weeks.
[2018-07-16 10:00] VITALS: BP 137/82; PULSE 80; RESP 16
[2018-07-16 10:14] LABS: Glucose,Whole Blood 103 mg/dL (75-99)
== END 2018-07-16 10:35 | disposition home or self-care (01) ==
LOC: ORWHC2ENDO 08:25
PROVIDERS: ATTEND Internal Medicine Gastroenterology
DX: K22.70 Barrett's esophagus without dysplasia (principal); K21.9 Gastro-esophageal reflux disease without esophagitis; K44.9 Diaphragmatic hernia without obstruction or gangrene; Z88.1 Allergy status to other antibiotic agents; Z88.8 Allergy status to other drugs, medicaments and biological substances; E11.9 Type 2 diabetes mellitus without complications; E78.5 Hyperlipidemia, unspecified; I10 Essential (primary) hypertension; E07.9 Disorder of thyroid, unspecified; Z79.84 Long term (current) use of oral hypoglycemic drugs; Z79.899 Other long term (current) drug therapy
CPT/HCPCS: 88305; 43239; J2001; J2704

== ENCOUNTER → 2018-08-30 | Outpatient (CLI) | payer MEDICARE, OTHER ==
--- NOTE | 2018-09-03 09:47 | PE ---
Nuclear medicine PET/CT HISTORY: Esophageal carcinoma, initial Patient received 9.6 mCi F-18 FDG intravenously in delayed scanning performed from the skull base to the mid thighs. Localization and attenuation correction CT scan was performed. No comparisons Neck and chest: There is no cervical, supraclavicular, axillary, mediastinal, or hilar adenopathy. Th ere is distal esophageal wall thickening present. There is associated hypermetabolic uptake. SUV is 2 .6. No evident lung mass. ABDOMEN: No evident liver mass. Patient is post cholecystectomy. No retroperitoneal adenopathy. Uptak e along the colon and within the small bowel felt likely to be physiologic. Bilateral renal calcifica tions are present. There is duodenal diverticulum. Osseous structures show arthropathy within the hips. Degenerative disc changes are present in the low er lumbar spine with facet arthropathy. No suspicious hypermetabolic uptake. IMPRESSION: There is mild distal esophageal uptake consistent with patient's known history of esophag eal carcinoma.
== END | disposition home or self-care (01) ==
LOC: RADPETMAIN 13:33
PROVIDERS: ATTEND Surgery
DX: C15.5 Malignant neoplasm of lower third of esophagus (principal)
CPT/HCPCS: 78815; A9552

== ENCOUNTER → 2019-01-29 | Outpatient (CLI) | payer MEDICARE, OTHER ==
[2019-01-29 15:44] LABS: HCT 40.5 % (34.0-46.0); HGB 12.7 gm/dL (11.4-16.0); Hypochromasia Slight; MCH 30.3 pg (25.0-35.0); MCHC 31.4 g/dL (31.0-37.0); MCV 96.6 fL (80.0-100.0); Mean Platelet Volume 7.9; Platelet Count 330 k/uL (150-450); RDW 13.1 % (11.5-15.5); WBC 7.1 k/uL (3.8-10.6)
[2019-01-29 18:02] LABS: Eosinophils # (M) 0.14 k/uL (0-0.7); Lymphocytes # (M) 0.78 k/uL (1.0-4.8); Monocytes # (M) 0.78 k/uL (0-1.0); Neutrophils % (M) 76 %; Nucleated Red Blood Cells 0 /100 WBC (0-0); Total Cells Counted 100
[2019-01-29 19:23] LABS: Albumin 4.4 g/dL (3.80-4.90); Albumin/Globulin Ratio 1.76 (1.60-3.17); Anion Gap 11.8 mmol/L (4.00-12.00); BUN/Creat Ratio 21.25 Ratio (12.00-20.00); Calcium 9.9 mg/dL (8.7-10.3); Carbon Dioxide 29.2 mmol/L (21.6-31.8); Globulin 2.5 g/dL (1.6-3.3); Non-African American GFR(CKD) 71.6 (60.0-200.0); Potassium 4.5 mmol/L (3.5-5.5); Total Bilirubin 0.2 mg/dL (0.2-1.2); Total Protein 6.9 g/dL (6.2-8.2)
== END | disposition home or self-care (01) ==
LOC: LABWHC1 15:11
PROVIDERS: ATTEND Internal Medicine Gastroenterology
DX: R10.13 Epigastric pain (principal)
CPT/HCPCS: 36415; 80053; 85025

== ENCOUNTER → 2019-02-27 | Day surgery (SDC) | payer MEDICARE, OTHER ==
[2019-02-25 16:17] VITALS: BMI 29.3
[~2019-02-27] MED LIST changes: +LIDOCAINE 1% 20 ML VIAL (10MG/ML) FOR IV START INTRADERMA PRN; +LIDOCAINE 1% INJ 10MG/ML (20 ML MDV) ONE; +PROPOFOL 10 MG/ML 20 ML VIAL IV ONE
[2019-02-27 07:18] VITALS: TEMP 97.2
[2019-02-27 07:59] LABS: Glucose,Whole Blood 228 mg/dL (75-99)
--- NOTE | 2019-02-27 08:29 | P.PCN ---
Date of Procedure: 02/27/19 Procedure(s) Performed: BRIEF HISTORY: Patient is a 72-year-old, pleasant, white female, scheduled for an upper endoscopy as a part of surveillance of form esophageal adenocarcinoma diagnosed in July 2017 for which she underwent endoscopic mucosal resection followed by radiation therapy as she was not a surgical candidate. She completes of occasional dysphagia PROCEDURE PERFORMED: Esophagogastroduodenoscopy with biopsy. PREOPERATIVE DIAGNOSIS: Follow-up distal esophageal adenocarcinoma. IV sedation per anesthesia. PROCEDURE: After informed consent was obtained, the patient was brought into the endoscopy unit. IV sedation was administered by Anesthesia under continuous monitoring. Initially the Olympus GIF-140 video endoscope was inserted into the mouth. Esophagus intubated without any difficulty. It was gradually advanced into the stomach and duodenum and carefully examined. The bulb and the second part of the duodenum appeared normal. The scope at this time was withdrawn to the stomach, adequately insufflated with air, and upon careful examination, mucosa of the antrum, body, cardia and the fundus appeared normal. There was moderate amount of solid food in the stomach but no evidence of gastric outlet obstruction The scope was then withdrawn into the esophagus. The GE junction was located at 40 cm from the incisors. At 38 cm from the incisors there was scarring noted from the previous endoscopic mucosal resection. Also between 38- 40 cm from the incisors. Small islands of Freeman's-appearing mucosa which was biopsied. The rest of the esophagus appeared normal. The patient tolerated the procedure well. IMPRESSION: 1. Small islands of Freeman's appearing mucosa just proximal to the GE junction and from 30-40 cm from the incisors at the site of previous radiation therapy status post multiple biopsies. 2. Small sliding Hiatal hernia 3. Retained food in the stomach suggestive of gastroparesis. RECOMMENDATIONS: The findings of this examination were discussed with the patient as well as a family. She was advised to follow with the biopsy results. If the biopsies are negative she can have a repeat surveillance upper endoscopy in 6 months to one year. In the meantime she will continue on Prevacid 30 mg daily and follow antireflux measures
[2019-02-27 08:35] VITALS: RESP 16
[2019-02-27 09:04] VITALS: BP 142/90; PULSE 78
[2019-02-27 09:09] LABS: Glucose,Whole Blood 190 mg/dL (75-99)
== END ==
LOC: ORWHC2ENDO 06:55
PROVIDERS: ATTEND Internal Medicine Gastroenterology
DX: K22.711 Barrett's esophagus with high grade dysplasia (principal); K44.9 Diaphragmatic hernia without obstruction or gangrene; Z85.01 Personal history of malignant neoplasm of esophagus; Z92.3 Personal history of irradiation; I10 Essential (primary) hypertension; E11.9 Type 2 diabetes mellitus without complications; E07.9 Disorder of thyroid, unspecified; M19.90 Unspecified osteoarthritis, unspecified site; H91.90 Unspecified hearing loss, unspecified ear; K21.9 Gastro-esophageal reflux disease without esophagitis; Z86.73 Personal history of transient ischemic attack (TIA), and cerebral infarction without residual deficits; Z79.84 Long term (current) use of oral hypoglycemic drugs; Z79.899 Other long term (current) drug therapy; Z79.890 Hormone replacement therapy; Z88.0 Allergy status to penicillin; Z88.8 Allergy status to other drugs, medicaments and biological substances; Z91.09 Other allergy status, other than to drugs and biological substances; Z90.49 Acquired absence of other specified parts of digestive tract
CPT/HCPCS: 88305; 43239; J2001; J2704

== ENCOUNTER → 2019-03-19 | Outpatient (CLI) | payer MEDICARE, OTHER ==
--- NOTE | 2019-03-19 13:40 | CT ---
EXAMINATION TYPE: CT abdomen pelvis wo con DATE OF EXAM: 03/19/2019 COMPARISON: PET/CT 08/30/2018 HISTORY: abdominal pain CT DLP: 554.1 mGycm Automated exposure control for dose reduction was used. TECHNIQUE: Helical acquisition of images from the lung bases through the pelvis. FINDINGS: There is some thickening of the distal esophagus possibly related to patient's esophageal c arcinoma. Lack of intravenous contrast could compromise sensitivity. The heart is enlarged. There are coronary artery calcifications. LUNG BASES: No significant abnormality is appreciated. AORTA: No significant abnormality is appreciataed. LIVER/GB: Patient is post cholecystectomy. No evident liver mass. PANCREAS: No significant abnormality is seen. SPLEEN: No significant abnormality is seen. ADRENALS: No significant abnormality is seen. KIDNEYS: Nonobstructive renal calculi present within the bilateral kidneys, largest is within the ant erior aspect of the right kidney measures 11 mm, approximately 5-6 calcifications in the left kidney, too calcifications in the right kidney. REPRODUCTIVE ORGANS: Not seen URINARY BLADDER: No significant abnormality is seen. BOWEL: Duodenal diverticulum present at the level of the head of the pancreas. Small umbilical herni a contains fat. Diverticular changes associated with the colon FREE AIR: No Free Air is visible. ASCITES: None visible. PELVIC ADENOPATHY: None visualized. RETROPERITONEAL ADENOPATHY: No Retroperitoneal Adenopathy visible. OSSEOUS STRUCTURES: Extensive degenerative disc changes are present within the lumbar spine, there i s a spinal curvature.. IMPRESSION: DISTAL ESOPHAGEAL THICKENING POSSIBLY RELATED TO PATIENT'S ESOPHAGEAL CARCINOMA. ADDITIONAL NONSPECIF IC FINDINGS ABOVE. Nonobstructive renal calculi. Noncontrast exam. Postop changes.
== END | disposition home or self-care (01) ==
LOC: RADCTMAIN 11:08
PROVIDERS: ATTEND Family Medicine
DX: K22.8 Other specified diseases of esophagus (principal); N20.0 Calculus of kidney
CPT/HCPCS: 74176

== ENCOUNTER → 2019-08-27 | Outpatient (CLI) | payer MEDICARE, OTHER ==
--- NOTE | 2019-08-27 10:43 | MM ---
Reason for exam: screening (asymptomatic). Last mammogram was performed 1 year and 5 months ago. History: Patient is postmenopausal and has history of other cancer at age 72. Physical Findings: A clinical breast exam by your physician is recommended on an annual basis and results should be correlated with mammographic findings. MG 3D Screening Mammo W/Cad Bilateral CC and MLO view(s) were taken. Prior study comparison: April 09, 2018, bilateral MG 3d screening mammo w/cad. December 05, 2016, bilateral MG 3d screening mammo w/cad. There are scattered fibroglandular densities. No significant changes when compared with prior studies. ASSESSMENT: Benign, BI-RAD 2 RECOMMENDATION: Routine screening mammogram of both breasts in 1 year.
== END | disposition home or self-care (01) ==
LOC: RADMAMWWP 09:08
PROVIDERS: ATTEND Family Medicine
DX: Z12.31 Encounter for screening mammogram for malignant neoplasm of breast (principal)
CPT/HCPCS: 77063; 77067

== ENCOUNTER → 2019-09-08 | Outpatient (CLI) | payer MEDICARE, OTHER ==
--- NOTE | 2019-09-09 13:44 | P.ARTDOP ---
Arterial Doppler LOWER EXTREMITY ARTERIAL DOPPLER: DATE OF SERVICE: 09/08/2019 Reason for study: Leg swelling. Doppler waveforms: Multiphasic bilaterally throughout. Pulse volume recording: []. Pressure gradients: None. Ankle-brachial indices: Greater than 1 bilaterally. Toe brachial indices: Greater than 1 bilaterally Impression: Normal study.
== END | disposition home or self-care (01) ==
LOC: RADUSWWP 10:18
PROVIDERS: ATTEND Family Medicine
DX: I73.9 Peripheral vascular disease, unspecified (principal)
CPT/HCPCS: 93922; 93923

== ENCOUNTER → 2019-12-18 | Outpatient (CLI) | payer MEDICARE, OTHER ==
--- NOTE | 2019-12-18 18:31 | ECHOF ---
Referral Reason:I50.9 heart failure MEASUREMENTS -------- HEIGHT: 162.6 cm WEIGHT: 82.1 kg BP: RVIDd: 2.8 cm (< 3.3) IVSd: 1.4 cm (0.6 - 1.1) LVIDd: 3.3 cm (3.9 - 5.3) LVPWd: 1.3 cm (0.6 - 1.1) IVSs: 2.0 cm LVIDs: 3.2 cm LVPWs: 1.8 cm LA Diam: 4.0 cm (2.7 - 3.8) LAESV Index (A-L): 37.31 ml/m Ao Diam: 3.1 cm (2.0 - 3.7) AV Cusp: 2.1 cm (1.5 - 2.6) MV EXCURSION: 10.933 mm (> 18.000) MV EF SLOPE: 66 mm/s (70 - 150) EPSS: 0.7 cm RAP: 15.00 mmHg RVSP: 33.43 mmHg FINDINGS -------- Resting tachycardia (HR>100bpm). This was a technically adequate study. The left ventricular size is normal. There is moderate concentric left ventricular hypertrophy. O verall left ventricular systolic function is severely impaired with, an EF < 20%. The right ventricle is normal in size. LA is moderately dilated 34-39 ml/m2 The right atrium is normal in size. Interatrial and interventricular septum intact. The aortic valve is trileaflet and appears structurally normal. The mitral valve leaflets are mildly thickened. Mild mitral annular calcification present. Mild tricuspid regurgitation present. There is borderline pulmonary hypertension. The right ventr icular systolic pressure, as measured by Doppler, is 33.43mmHg. Trace/mild (physiologic) pulmonic regurgitation. The aortic root size is normal. The inferior vena cava is dilated with no significant inspiratory collapse which is consistent estima radha right atrial pressure of >15. mmHg. There is no pericardial effusion. CONCLUSIONS -------- 1. The left ventricular size is normal. 2. There is moderate concentric left ventricular hypertrophy. 3. Overall left ventricular systolic function is severely impaired with, an EF < 20%. 4. LA is moderately dilated 34-39 ml/m2 5. The aortic valve is trileaflet and appears structurally normal. 6. The mitral valve leaflets are mildly thickened. 7. Mild mitral annular calcification present. 8. Mild tricuspid regurgitation present. 9. There is borderline pulmonary hypertension. 10. The right ventricular systolic pressure, as measured by Doppler, is 33.43mmHg. 11. Trace/mild (physiologic) pulmonic regurgitation. 12. The inferior vena cava is dilated with no significant inspiratory collapse which is consistent es timated right atrial pressure of >15. mmHg. 13. There is no pericardial effusion. COUNTY ADMINISTRATOR: Clarissa Carvalho RDCS
== END | disposition home or self-care (01) ==
LOC: RADECHMAIN 12:12
PROVIDERS: ATTEND Nurse Practitioner Adult Health
DX: I07.1 Rheumatic tricuspid insufficiency (principal); I27.20 Pulmonary hypertension, unspecified; I50.9 Heart failure, unspecified
CPT/HCPCS: 93306

== ENCOUNTER 2020-03-14 11:44 | Inpatient (IN) | payer MEDICARE, OTHER ==
[2020-03-14 12:04] VITALS: RESP 18
--- NOTE | 2020-03-14 12:13 | ED ---
General Adult HPI - General Chief complaint: Weakness Stated complaint: weakness Time Seen by Provider: 03/14/20 11:46 Source: patient, family, EMS, RN notes reviewed Mode of arrival: EMS Limitations: physical limitation - History of Present Illness Initial comments: Patient is a pleasant 79-year-old female presenting to the emergency department with weakness. Onset of symptoms was 10:00 yesterday. Patient does have some slurred speech which is somewhat increased with chronic. Patient complains of numbness and discomfort of her left upper extremity. Patient is unclear if there is weakness. Family does arrive and states there has been some left leg weakness with attempted ambulation. Patient does have known metastatic esophageal cancer. Patient has previous radiation treatment. They are going to have repeat PET scan again soon and follow-up again with gastroenterology for treatment options. - Related Data Home Medications Medication Instructions Recorded Confirmed Atorvastatin [Lipitor] 40 mg PO HS 12/14/13 02/27/19 Isosorbide Mononitrate [Imdur] 30 mg PO HS 12/14/13 02/27/19 Verapamil HCl [Verapamil ER] 180 mg PO HS 12/14/13 02/27/19 rOPINIRole HCL [Requip] 0.25 mg PO BID@0800,1200 12/14/13 02/27/19 Multivitamins, Thera [Multivitamin 1 tab PO TUTHSA 11/15/14 02/25/19 (formulary)] Furosemide [Lasix] 40 mg PO DAILY@0800 05/12/15 02/27/19 Lansoprazole 30 mg PO BID 05/12/15 02/27/19 sitaGLIPtin PHOS/metFORMIN HCL 1 tab PO BID 05/12/15 02/27/19 [Janumet 50-500 mg Tablet] Cholecalciferol (Vitamin D3) 2,000 unit PO DAILY 12/10/17 02/27/19 [Vitamin D3] Dulaglutide [Trulicity] 0.5 mg SQ MO 12/10/17 02/27/19 Famotidine 40 mg PO HS 12/10/17 02/27/19 Gabapentin [Neurontin] 300 mg PO BID 12/10/17 02/27/19 Levothyroxine Sodium [Synthroid] 137 mcg PO DAILY 12/10/17 02/27/19 Losartan [Cozaar] 25 mg PO DAILY@0800 12/10/17 02/27/19 metFORMIN HCL [Glucophage] 500 mg PO BID 12/10/17 02/27/19 rOPINIRole HCL [Requip] 0.5 mg PO HS 12/10/17 02/27/19 Docusate [Colace] 100 mg PO MOWEFR 07/14/18 02/27/19 Potassium Chloride Oral Liquid 1.5 gm PO DAILY 02/25/19 02/27/19 Previous Rx's Medication Instructions Recorded Nystatin 100,000 Unit/gm Powd 1 applic TOPICAL BID #30 gm 12/13/17 [Mycostatin Powder] Allergies Allergy/AdvReac Type Severity Reaction Status Date / Time pantoprazole Allergy Unknown Rash/Hives Verified 03/14/20 14:55 amoxicillin Allergy Rash/Hives Verified 03/14/20 14:55 empagliflozin Allergy Unknown Verified 03/14/20 14:55 [From Jardiance] nylon Allergy Rash/Hives Verified 03/14/20 14:55 dapagliflozin [From Farxiga] AdvReac severe Verified 03/14/20 14:55 dizziness,blurred vision glyxamber Allergy Rash/Hives Uncoded 02/25/19 15:46 Review of Systems ROS Statement: Those systems with pertinent positive or pertinent negative responses have been documented in the HPI. ROS Other: All systems not noted in ROS Statement are negative. Constitutional: Denies: fever Eyes: Denies: eye pain ENT: Denies: ear pain Respiratory: Denies: cough Cardiovascular: Denies: chest pain Endocrine: Denies: fatigue Gastrointestinal: Denies: abdominal pain Genitourinary: Denies: dysuria Musculoskeletal: Denies: back pain Skin: Denies: rash Neurological: Reports: weakness, abnormal gait. Denies: headache, confusion Past Medical History Past Medical History: Atrial Fibrillation, Cancer, CVA/TIA, Diabetes Mellitus, GERD/Reflux, Hearing Disorder / Deafness, Hypertension, Osteoarthritis (OA), Pneumonia, Renal Disease, Thyroid Disorder Additional Past Medical History / Comment(s): Possible TIA-no weakness or paralysis, vaginal cancer, chronic yeast infection in abdominal fold, neuropathy both legs, mary alice carpal tunnel, frequent UTI's, arrythmia, Swelling in legs and feet, Hx of cellulitis legs, Barretts esophagus. , resolving Pneumonia-finished antibiotics , [place] ( hearing aids no longer work for her & radiation destroyed rest of hearing), ringing in her ears, admission in May 2018 for sepsis related to cat bite, hx. kidney stones currently-don't think they are obstructing anything, abd. bloating currently, recent dx. esophageal cancer 2019-radiation completed 2018, some dysphagia w/meds, does due soft diet, severe GERD-worsened by radiation History of Any Multi-Drug Resistant Organisms: None Reported Past Surgical History: Appendectomy, Section, Hysterectomy Additional Past Surgical History / Comment(s): removal of vaginal tumor, cataract bilateral , vaginal ablation x2.egd/colonoscopy, cancerous Freeman's tumor removed from [facility] endoscopically July 2018 Past Anesthesia/Blood Transfusion Reactions: No Reported Reaction Additional Past Anesthesia/Blood Transfusion Reaction / Comment(s): family hx unknown. PATIENT HAS HAD PROBLEM W/HYPOGLYCEMIC EPISODES WHEN COMING OUT OF ANESTHESIA DEPENDING ON LENGTH OF FASTING PRIOR Past Psychological History: No Psychological Hx Reported Smoking Status: Never smoker Past Alcohol Use History: None Reported Past Drug Use History: None Reported - Past Family History Mother Family Medical History: CVA/TIA Father Family Medical History: Coronary Artery Disease (CAD) General Exam Limitations: physical limitation General appearance: alert, in no apparent distress Head exam: Present: atraumatic Eye exam: Present: normal appearance, PERRL, EOMI ENT exam: Present: normal oropharynx Neck exam: Present: normal inspection Respiratory exam: Present: normal lung sounds bilaterally Cardiovascular Exam: Present: tachycardia GI/Abdominal exam: Present: soft. Absent: tenderness Extremities exam: Present: normal inspection Neurological exam: Present: alert, oriented X3 Expanded Neurological exam: Present: other (Patient does have some slurred speech) Cranial nerves: EOM's Intact: Normal, Facial Sensation: Normal Cerebellar function: Finger to Nose: Abnormal Left Sensory exam: Upper Extremity Light Touch: Normal, Lower Extremity Light Touch: Normal Motor strength exam: RUE: 4, LUE: 4, RLE: 4, LLE: 4 Eye Response: (4) open spontaneously Motor Response: (6) obeys commands Verbal Response: (5) oriented Psychiatric exam: Present: normal affect, normal mood Skin exam: Present: normal color Course Vital Signs 03/14/20 03/14/20 03/14/20 11:48 12:44 14:00 Temperature 98.6 F Pulse Rate 117 H 107 H 80 Respiratory 18 18 18 Rate Blood Pressure 138/74 127/72 O2 Sat by Pulse 95 100 99 Oximetry - Reevaluation(s) Reevaluation #1: 03/14/20 13:39 Patient is felt not to be a TPA candidate secondary to concern for questionable metastasis as well as onset greater than 4.5 hours. EKG Findings - EKG Comments: EKG Findings:: Appearance of sinus tachycardia with left bundle branch block, rate 117. MO 248. QRS 142. QT 310. QTc 432. Normal axis. Left bundle branch block. No acute ST change. Medical Decision Making - Medical Decision Making Patient reevaluated. Patient and family updated. Case discussed with Dr. Tucker, covering for Dr. Mustafa, who admits for Dr. Lau. - Lab Data Result diagrams: 03/14/20 12:53 03/14/20 12:56 Lab Results 03/14/20 03/14/20 03/14/20 Range/Units 12:53 12:56 12:56 WBC 11.3 H (3.8-10.6) k/uL RBC 3.90 (3.80-5.40) m/uL Hgb 11.7 (11.4-16.0) gm/dL Hct 37.6 (34.0-46.0) % MCV 96.3 (80.0-100.0) fL MCH 29.9 (25.0-35.0) pg MCHC 31.0 (31.0-37.0) g/dL RDW 13.9 (11.5-15.5) % Plt Count 270 (150-450) k/uL MPV 8.3 Hypochromasia Slight PT 10.4 (9.0-12.0) sec INR 1.0 (<1.2) APTT 25.2 (22.0-30.0) sec Sodium 136 L (137-145) mmol/L Potassium 4.7 (3.5-5.1) mmol/L Chloride 94 L (98-107) mmol/L Carbon Dioxide 30 (22-30) mmol/L Anion Gap 12 mmol/L BUN 24 H (7-17) mg/dL Creatinine 0.74 (0.52-1.04) mg/dL Est GFR (CKD-EPI)AfAm >90 (>60 ml/min/1.73 sqM) Est GFR (CKD-EPI)NonAf 79 (>60 ml/min/1.73 sqM) Glucose 271 H (74-99) mg/dL Calcium 9.7 (8.4-10.2) mg/dL Total Bilirubin 0.6 (0.2-1.3) mg/dL AST 31 (14-36) U/L ALT 24 (4-34) U/L Alkaline Phosphatase 104 (38-126) U/L Troponin I (0.000-0.034) ng/mL Total Protein 7.3 (6.3-8.2) g/dL Albumin 4.3 (3.5-5.0) g/dL 03/14/20 Range/Units 12:56 WBC (3.8-10.6) k/uL RBC (3.80-5.40) m/uL Hgb (11.4-16.0) gm/dL Hct (34.0-46.0) % MCV (80.0-100.0) fL MCH (25.0-35.0) pg MCHC (31.0-37.0) g/dL RDW (11.5-15.5) % Plt Count (150-450) k/uL MPV Hypochromasia PT (9.0-12.0) sec INR (<1.2) APTT (22.0-30.0) sec Sodium (137-145) mmol/L Potassium (3.5-5.1) mmol/L Chloride (98-107) mmol/L Carbon Dioxide (22-30) mmol/L Anion Gap mmol/L BUN (7-17) mg/dL Creatinine (0.52-1.04) mg/dL Est GFR (CKD-EPI)AfAm (>60 ml/min/1.73 sqM) Est GFR (CKD-EPI)NonAf (>60 ml/min/1.73 sqM) Glucose (74-99) mg/dL Calcium (8.4-10.2) mg/dL Total Bilirubin (0.2-1.3) mg/dL AST (14-36) U/L ALT (4-34) U/L Alkaline Phosphatase (38-126) U/L Troponin I 0.022 (0.000-0.034) ng/mL Total Protein (6.3-8.2) g/dL Albumin (3.5-5.0) g/dL - Radiology Data Radiology results: report reviewed (Computed tomography scan of the brain shows no hemorrhage or shift. Atrophy and chronic small vessel changes redemonstrated. No change from prior.), image reviewed (Chest x-ray shows cardiac megaly without acute pulmonary process.) Disposition Clinical Impression: Left-sided weakness Disposition: ADMITTED IP TO THIS HOSP Is patient prescribed a controlled substance at d/c from ED?: No Referrals: Rosendo Lau MD [Primary Care Provider] - 1-2 days Decision Time: 15:00
--- NOTE | 2020-03-14 12:40 | XR ---
EXAMINATION TYPE: XR chest 2V DATE OF EXAM: 03/14/2020 COMPARISON: Chest x-ray March 31, 2013 HISTORY: Weakness. TECHNIQUE: Frontal and lateral views of the chest are obtained. FINDINGS: There is chronic parenchymal changes without suspicious new focal air space opacity, pleur al effusion, or pneumothorax seen. The cardiac silhouette size is enlarged with atherosclerotic aort a. The osseous structures are demineralized. Cholecystectomy clips. IMPRESSION: Chronic changes and cardiomegaly without acute pulmonary process.
--- NOTE | 2020-03-14 12:48 | CT ---
EXAMINATION TYPE: CT brain wo con for TPA DATE OF EXAM: 03/14/2020 HISTORY: Left sided weakness, arm and leg CT DLP: 1021.4 mGycm. Automated Exposure Control for Dose Reduction was Utilized. TECHNIQUE: CT scan of the head is performed without contrast. COMPARISON: CT brain March 30, 2013. FINDINGS: There is no acute intracranial hemorrhage or midline shift identified. There is moderate to severe diffuse ventricular and sulcal prominence consistent with diffuse age-related cerebral atro phy radius over the bilateral frontal and parietal lobes redemonstrated. There is low-attenuation in the periventricular white matter consistent with chronic small vessel ischemic change. Vascular georgie cification distal internal carotid arteries bilaterally redemonstrated. Dural calcification anterior right frontal region redemonstrated. The globes are intact and the visualized sinuses are clear. IMPRESSION: No acute intracranial hemorrhage or midline shift. There is moderate to severe diffuse age-related cerebral atrophy and mild chronic small vessel ischemic change redemonstrated. No signif icant change from prior.
[2020-03-14 13:33] LABS: Partial Thromboplastin Time 25.2 sec (22.0-30.0); Prothrombin Time 10.4 sec (9.0-12.0)
[2020-03-14 13:41] LABS: ALT 24 U/L (4-34); AST 31 U/L (14-36); African American GFR (CKD) >90 (>60 ml/min/1.73 sqM); Albumin 4.3 g/dL (3.5-5.0); Alkaline Phosphatase 104 U/L (38-126); Anion Gap 12 mmol/L; Blood Urea Nitrogen 24 mg/dL (7-17); Calcium 9.7 mg/dL (8.4-10.2); Carbon Dioxide 30 mmol/L (22-30); Chloride 94 mmol/L (98-107); Glucose 271 mg/dL (74-99); Non-African American GFR(CKD) 79 (>60 ml/min/1.73 sqM); Potassium 4.7 mmol/L (3.5-5.1); Sodium 136 mmol/L (137-145); Total Bilirubin 0.6 mg/dL (0.2-1.3); Total Protein 7.3 g/dL (6.3-8.2)
[2020-03-14 14:48] LABS: Basophils # (A) 0.1 k/uL (0-0.2); Basophils % (A) 1 %; Eosinophils % (A) 0 %; HCT 37.6 % (34.0-46.0); HGB 11.7 gm/dL (11.4-16.0); Hypochromasia Slight; Lymphocytes # (A) 0.5 k/uL (1.0-4.8); Lymphocytes % (A) 4 %; MCH 29.9 pg (25.0-35.0); MCV 96.3 fL (80.0-100.0); Mean Platelet Volume 8.3; Monocytes # (A) 3.8 k/uL (0-1.0); Monocytes % (A) 34 %; Neutrophils # (A) 6.7 k/uL (1.3-7.7); Neutrophils % (A) 59 %; Platelet Count 270 k/uL (150-450); RDW 13.9 % (11.5-15.5); WBC 11.3 k/uL (3.8-10.6)
[2020-03-14] MEDS ORDERED: ASPIRIN 325 MG TAB PO STA (15:00)
[2020-03-14 15:23] LABS: Poikilocytosis (M) Present
--- NOTE | 2020-03-14 15:45 | P.HPIM ---
History of Present Illness H&P Date: 03/14/20 Chief Complaint: Right-sided weakness This is a 79-year-old female with very complex past medical history noted below significant for esophageal cancer and severe systolic cardiomyopathy with ejection fraction less than 20% that presented to the emergency room with left-sided weakness and slurred speech. Patient is a very poor historian and very hard of hearing. Most of the history was obtained by her niece at bedside. Her niece is her DURABLE POWER OF SOLAR HOT WATER INSTALLER. She informed me that patient has been declining over the past several weeks and has been having problems with her heart failure getting worse and her lead radiologic technologist adjusting her medications more frequently. Yesterday, she was noted to have more weakness on the left side involving both her arm and leg as well as some slurred speech. This morning, patient was unable to move her left arm or left lower extremity. Her speech was worse and she was brought into the emergency room for further evaluation. In the ER, computed tomography scan of the head showed no acute findings. Patient will be admitted to the hospital for further evaluation. Patient herself does not have any specific concerns or complaints. On physical exam, she was noted to have significant weakness in all 4 extremities worse on the left. Her speech appeared slurred that she was able to answer my questions appropriately. Review of Systems Review of system: 14 points review of systems were obtained and were negative except to what were mentioned in the HPI. Past Medical History Past Medical History: Atrial Fibrillation, Cancer, CVA/TIA, Diabetes Mellitus, GERD/Reflux, Hearing Disorder / Deafness, Hypertension, Osteoarthritis (OA), Pneumonia, Renal Disease, Thyroid Disorder Additional Past Medical History / Comment(s): Possible TIA-no weakness or paralysis, vaginal cancer, chronic yeast infection in abdominal fold, neuropathy both legs, mary alice carpal tunnel, frequent UTI's, arrythmia, Swelling in legs and feet, Hx of cellulitis legs, Barretts esophagus. , resolving Pneumonia-finished antibiotics , [place] ( hearing aids no longer work for her & radiation destroyed rest of hearing), ringing in her ears, admission in May 2018 for sepsis related to cat bite, hx. kidney stones currently-don't think they are obstructing anything, abd. bloating currently, recent dx. esophageal cancer 2019-radiation completed 2018, some dysphagia w/meds, does due soft diet, severe GERD-worsened by radiation History of Any Multi-Drug Resistant Organisms: None Reported Past Surgical History: Appendectomy, Section, Hysterectomy Additional Past Surgical History / Comment(s): removal of vaginal tumor, cataract bilateral , vaginal ablation x2.egd/colonoscopy, cancerous Freeman's tumor removed from [facility] endoscopically July 2018 Past Anesthesia/Blood Transfusion Reactions: No Reported Reaction Additional Past Anesthesia/Blood Transfusion Reaction / Comment(s): family hx unknown. PATIENT HAS HAD PROBLEM W/HYPOGLYCEMIC EPISODES WHEN COMING OUT OF ANESTHESIA DEPENDING ON LENGTH OF FASTING PRIOR Past Psychological History: No Psychological Hx Reported Smoking Status: Never smoker Past Alcohol Use History: None Reported Past Drug Use History: None Reported - Past Family History Mother Family Medical History: CVA/TIA Father Family Medical History: Coronary Artery Disease (CAD) Medications and Allergies Home Medications Medication Instructions Recorded Confirmed Type Isosorbide Mononitrate [Imdur] 30 mg PO HS 12/14/13 03/14/20 History rOPINIRole HCL [Requip] 0.25 mg PO BID@0800,1200 12/14/13 03/14/20 History Multivitamins, Thera [Multivitamin 1 tab PO DAILY@1200 11/15/14 03/14/20 History (formulary)] Lansoprazole 30 mg PO BID@0800,1900 05/12/15 03/14/20 History sitaGLIPtin PHOS/metFORMIN HCL 1 tab PO BID 05/12/15 03/14/20 History [Janumet 50-500 mg Tablet] Cholecalciferol (Vitamin D3) 2,000 unit PO DAILY 12/10/17 03/14/20 History [Vitamin D3] Dulaglutide [Trulicity] 0.5 mg SQ MO 12/10/17 03/14/20 History Famotidine 40 mg PO HS 12/10/17 03/14/20 History Gabapentin [Neurontin] 300 mg PO BID 12/10/17 03/14/20 History Levothyroxine Sodium [Synthroid] 137 mcg PO DAILY 12/10/17 03/14/20 History Losartan [Cozaar] 25 mg PO DAILY@0800 12/10/17 03/14/20 History metFORMIN HCL [Glucophage] 500 mg PO BID 12/10/17 03/14/20 History rOPINIRole HCL [Requip] 0.5 mg PO HS 12/10/17 03/14/20 History Nystatin 100,000 Unit/gm Powd 1 applic TOPICAL BID #30 gm 12/13/17 03/14/20 Rx [Mycostatin Powder] Atorvastatin [Lipitor] 10 mg PO HS 03/14/20 03/14/20 History Bumetanide [Bumex] 1 mg PO BID 03/14/20 03/14/20 History Carvedilol [Coreg] 25 mg PO BID@0800,1700 03/14/20 03/14/20 History Col-Rite 200 mg PO DAILY@1200 03/14/20 03/14/20 History Potassium Chloride [Klor-Con 20 20 meq PO DAILY@1200 03/14/20 03/14/20 History Packets] Allergies Allergy/AdvReac Type Severity Reaction Status Date / Time pantoprazole Allergy Unknown Rash/Hives Verified 03/14/20 14:55 amoxicillin Allergy Rash/Hives Verified 03/14/20 14:55 empagliflozin Allergy Unknown Verified 03/14/20 14:55 [From [employer]] nylon Allergy Rash/Hives Verified 03/14/20 14:55 dapagliflozin [From Farxiga] AdvReac severe Verified 03/14/20 14:55 dizziness,blurred vision glyxamber Allergy Rash/Hives Uncoded 02/25/19 15:46 Physical Exam Vitals: Vital Signs Temp Pulse Resp BP Pulse Ox 03/14/20 15:00 99.0 F 79 18 104/60 99 03/14/20 14:00 80 18 127/72 99 03/14/20 12:44 107 H 18 100 03/14/20 11:48 98.6 F 117 H 18 138/74 95 Intake and Output 03/14/20 03/14/20 03/14/20 06:59 14:59 22:59 Other: Weight 81.647 kg General: The patient is awake and alert, in no distress Eye: there is normal conjunctiva bilaterally. Neck: The neck is supple, there is no JVD. Cardiovascular: Normal S1-S2, no S3-S4, no murmurs. Respiratory: Lungs clear to auscultation bilaterally Gastrointestinal: Abdomen is soft, nontender Musculoskeletal: There +1-2 no pedal edema. . Skin: Skin is warm and dry . There is significant erythema involving the both lower extremities between the ankle and mid curran area that is slightly warm to touch Results CBC & Chem 7: 03/14/20 12:53 03/14/20 12:56 Labs: Abnormal Lab Results - Last 24 Hours (Table) 03/14/20 03/14/20 Range/Units 12:53 12:56 WBC 11.3 H (3.8-10.6) k/uL Lymphocytes # 0.5 L (1.0-4.8) k/uL Monocytes # 3.8 H (0-1.0) k/uL Sodium 136 L (137-145) mmol/L Chloride 94 L (98-107) mmol/L BUN 24 H (7-17) mg/dL Glucose 271 H (74-99) mg/dL Assessment and Plan Assessment: 1. Left-sided weakness involving upper and lower extremity, highly suspicious for CVA versus brain metastases (less likely). Started on full dose aspirin daily and Lipitor 40 mg daily. Computed tomography scan of the head in the ER showed no acute intracranial findings. Neurology consulted for further evaluation. MRI and carotid Doppler ordered. I reviewed her echocardiogram from December 2019 showing no intracardiac source. May consider repeat echocardiogram 2. Underlying esophageal cancer with no known metastasis. Patient was scheduled for PET scan next week. She will follow-up with oncology as directed. 3. Bilateral lower extremity cellulitis, start patient on IV clindamycin (ALLERGIC to penicillin) and continue to monitor closely. 4. Sepsis without septic shock, mild. Continue gentle IV fluid hydration with normal saline at 50 ml per hour. Antibiotic as above. 5. Severe cardiomyopathy with ejection fraction less than 20%, 6. Paroxysmal atrial fibrillation not on anticoagulation (probably secondary to increased risk of bleeding with underlying esophageal cancer0 7. Severe physical debility 8. Type 2 diabetes, hold oral agents and continue sliding scale insulin 9. Chronic medical problems: GERD, bilateral hearing loss, hyperlipidemia, hypertension, peripheral neuropathy, osteoarthritis, restless leg syndrome 10. GI and DVT prophylaxis with IV famotidine and subcu heparin 11. CODE STATUS, patient is DO NOT RESUSCITATE/DO NOT INTUBATE per her DURABLE POWER OF SOLAR HOT WATER INSTALLER
--- NOTE | 2020-03-14 15:48 | P.PN ---
Progress Note - Text Progress Note Date: 03/14/20 Today, I had a prolonged discussion with her niece at bedside who is her DURABLE POWER OF MANAGER MASS. We discussed goals of care. We discussed her current medical problems including severe cardiomyopathy with EF less than 20%, active esophageal cancer, and severe physical debility. Her niece informed me that patient was on palliative care at home. they were very close to make a decision for hospice but she was having difficulties with the logistics and insurance approval as the patient has a disabled daughter at home and she was told that her daughter need to be out of the house for her to be enrolled in hospice. She would prefer her to be at home with hospice rather than at the hospice house. We also discussed her current presentation. Discussed the differential diagnosis including a CVA or esophageal cancer metastatic disease. She was agreeable to obtain an MRI of the brain trying to find out what is going on. She does not want any excessive measures or treatment. She is not sure if she is cannot pursue the PET scan scheduled next week. I informed the niece that I would like to consult hospice during this admission maybe they can manage everything in a way that work for the patient and her niece. Time spent on discussion> 16 minutes
[2020-03-14] MEDS: SODIUM CHLORIDE 0.9% 1,000 ML IV SCH ×2 (16:03→23:15)
--- NOTE | 2020-03-14 16:04 | US ---
EXAMINATION TYPE: US carotid duplex BILAT DATE OF EXAM: 03/14/2020 COMPARISON: NONE CLINICAL HISTORY: Stenosis. weakness, possible TIA EXAM MEASUREMENTS: RIGHT: Peak Systolic Velocity (PSV) cm/sec ----- Right CCA: 72.0 ----- Right ICA: 86.4 ----- Right ECA: 111 ICA/CCA ratio: 1.2 RIGHT: End Diastole cm/sec ----- Right CCA: 11.0 ----- Right ICA: 23.0 ----- Right ECA: 0.0 LEFT: Peak Systolic Velocity (PSV) cm/sec ----- Left CCA: 57.2 ----- Left ICA: 57.0 ----- Left ECA: 73.5 ICA/CCA ratio: 1.0 LEFT: End Diastole cm/sec ----- Left CCA: 8.4 ----- Left ICA: 16.1 ----- Left ECA: 0.0 VERTEBRALS (direction of flow): Right Vertebral: Antegrade Left Vertebral: Antegrade Rhythm: Normal Mild peripheral plaques in the carotid bulb level on grayscale images. The velocity measurements and ratios in the visualized portions of both internal carotid arteries wit hin normal limits. IMPRESSION: Mild atherosclerotic changes without hemodynamically significant stenosis seen in either internal carotid artery. Criteria for Assigning % of Stenosis / Diameter reduction (Estimation based on the indirect measurements of the internal carotid artery velocities (ICA PSV). 1. Normal (no stenosis)=ICA PSV < 125 cm/s: ratio < 2.0: ICA EDV<40 cm/s. 2. Less than 50% stenosis=ICA PSV < 125 cm/s: ratio < 2.0: ICA EDV<40 cm/s. 3. 50 to 69% stenosis=ICA PSV of 125 to 230 cm/s: ration 2.0 ? 4.0: ICA EDV 40-100 cm/s. 4. Greater than 70% stenosis to near occlusion= ICA PSV > 230 cm/s: ratio > 4.0: ICA EDV > 100 cm/s. 5. Near occlusion= ICA PSV velocities may be low or undetectable: variable ratio and ICA EDV. 6. Total occlusion=unable to detect flow.
--- NOTE | 2020-03-14 17:39 | P.CNNES ---
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 Since patient is very hard of hearing and is poor historian, history is obtained from the patient Niece (Christina) who is at bedside. Per the patient's niece, she stated that the patient was last normal on 03/13/2020 at around 5:00pm then just past midnight (since patient took naps and unsure exact last normal) she woke up with left-sided weakness as well as facial weakness. Also the knee stiffness stated that the patient has a worsening of dysarthria from baseline now. Over the last the several weeks she's been having problems with her heart failure getting worse and has been seeing a account leader who has been modifying her medications. The patient resides at home and the her daughters with her. Her niece comes and visits on a regular basis for the most part. Regarding her esophageal cancer she the head the an esophageal scope at [facility] diagnosed with lower esophagus cancer in 2019. Patient had chemotherapy in 2019. She had another scope and the per the niece the there are notified that her cancer has spread from the lower to the middle. She also has a history of Jacob esophagus. The patient is not on any aspirin or any antiplatelets at home. The patient is on Lipitor 10 mg daily at home. The patient walks with a walker at home. Workup in the hospital consisted of: Initial vitals: Blood pressure of 138/74, heart rate of 117, respiratory of 18, temperature of 98.6 Fahrenheit oral and pulse ox of 95% room air. CT of the head is reported as no acute intracranial hemorrhage or midline shift. There is moderate to severe diffuse age-related cerebral atrophy and mild chronic small vessel ischemic changes redemonstrated. No significant change from prior. EKG is reported as sinus tachycardia with first-degree AV block. Left bundle branch block. Abnormal EKG. 2-D echo is reported as mild atherosclerotic changes without hemodynamic significant stenosis seen in either internal carotid artery. Initial serum glucose is 271. Sodium is 136. Review of Systems Review of system is limited in the prone positive and negative as per HPI. 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 History of Any Multi-Drug Resistant Organisms: None Reported Past Surgical History: Appendectomy, Section, Hysterectomy Additional Past Surgical History / Comment(s): removal of vaginal tumor, vaginal ablation x2, egd's/colonoscopy, cancerous Jacob's tumor removed from [facility] endoscopically July 2018, lithotripsy, 1940s had strep infection L lower leg and had bone scraping done, larygoscopies, bilateral cataract removals. Past Anesthesia/Blood Transfusion Reactions: No Reported Reaction Additional Past Anesthesia/Blood Transfusion Reaction / Comment(s): PATIENT HAS HAD PROBLEM W/HYPOGLYCEMIC EPISODES WHEN COMING OUT OF ANESTHESIA DEPENDING ON LENGTH OF FASTING PRIOR Smoking Status: Never smoker - Past Family History Mother Family Medical History: CVA/TIA Father Family Medical History: Coronary Artery Disease (CAD) Medications and Allergies Home Medications Medication Instructions Recorded Confirmed Type Isosorbide Mononitrate [Imdur] 30 mg PO HS 12/14/13 03/14/20 History rOPINIRole HCL [Requip] 0.25 mg PO BID@0800,1200 12/14/13 03/14/20 History Multivitamins, Thera [Multivitamin 1 tab PO DAILY@1200 11/15/14 03/14/20 History (formulary)] Lansoprazole 30 mg PO BID@0800,1900 05/12/15 03/14/20 History sitaGLIPtin PHOS/metFORMIN HCL 1 tab PO BID 05/12/15 03/14/20 History [Janumet 50-500 mg Tablet] Cholecalciferol (Vitamin D3) 2,000 unit PO DAILY 12/10/17 03/14/20 History [Vitamin D3] Dulaglutide [Trulicity] 0.5 mg SQ MO 12/10/17 03/14/20 History Famotidine 40 mg PO HS 12/10/17 03/14/20 History Gabapentin [Neurontin] 300 mg PO BID 12/10/17 03/14/20 History Levothyroxine Sodium [Synthroid] 137 mcg PO DAILY 12/10/17 03/14/20 History Losartan [Cozaar] 25 mg PO DAILY@0800 12/10/17 03/14/20 History metFORMIN HCL [Glucophage] 500 mg PO BID 12/10/17 03/14/20 History rOPINIRole HCL [Requip] 0.5 mg PO HS 12/10/17 03/14/20 History Nystatin 100,000 Unit/gm Powd 1 applic TOPICAL BID #30 gm 12/13/17 03/14/20 Rx [Mycostatin Powder] Atorvastatin [Lipitor] 10 mg PO HS 03/14/20 03/14/20 History Bumetanide [Bumex] 1 mg PO BID 03/14/20 03/14/20 History Carvedilol [Coreg] 25 mg PO BID@0800,1700 03/14/20 03/14/20 History Col-Rite 200 mg PO DAILY@1200 03/14/20 03/14/20 History Potassium Chloride [Klor-Con 20 20 meq PO DAILY@1200 03/14/20 03/14/20 History Packets] Allergies Allergy/AdvReac Type Severity Reaction Status Date / Time pantoprazole Allergy Unknown Rash/Hives Verified 03/14/20 14:55 amoxicillin Allergy Rash/Hives Verified 03/14/20 14:55 empagliflozin Allergy Unknown Verified 03/14/20 14:55 [From Jardiance] nylon Allergy Rash/Hives Verified 03/14/20 14:55 dapagliflozin [From Farxiga] AdvReac severe Verified 03/14/20 14:55 dizziness,blurred vision glyxamber Allergy Rash/Hives Uncoded 02/25/19 15:46 Physical Examination - Vital Signs Vital Signs: Vital Signs Temp Pulse Resp BP Pulse Ox 03/14/20 15:00 99.0 F 79 18 104/60 99 03/14/20 14:00 80 18 127/72 99 03/14/20 12:44 107 H 18 100 03/14/20 11:48 98.6 F 117 H 18 138/74 95 Intake and Output 03/14/20 03/14/20 03/14/20 06:59 14:59 22:59 Other: Weight 81.647 kg 81.647 kg GENERAL: The patient is lying in bed and is not in acute distress. CHEST: The heart rate is regular rate rhythm. No murmurs to auscultation. LUNG: Clear to auscultation bilaterally no wheezing noted throughout. Not labored breathing. ABDOMEN/GI: Bowel sounds present in all 4 quadrants. No tenderness to palpation throughout. INTEGUMENTARY: She has a erythema of the bilateral lower extremities and is seems from the curran downward would say the medical the last two third of the lower extremities she has erythema is tender to touch as well (Niece states she has cellulitis) NEUROLOGICAL: Higher mental function: The patient is awake, alert, oriented to self, place and time. Patient is following simple commands. No aphasia and no neglect from limited language. Cranial nerves: The pupils are round, equal and reactive to light and accommodation. Visual stevenson are full to confrontation throughout. Extraocular movement is intact no nystagmus is noted. Facial sensation is normal to touch throughout. The facial strength is left lower facial weakness. Hearing is very hard of hearing bilaterally (baseline). Tongue is midline and moved [id number] without any difficulty. Mild dysarthria is noted. Motor: Gait is deferred. The strength: The heart time assessing left upper extremity because of the pain but the patient was able to move bilateral upper extremity above gravity without any drift in the the patient he stated that this is improved compared to earlier today. While the patient is able to lift bilateral lower extremity above gravity is seems that the right lower extremity strength is more than the left since the left lower extremity drops to the bed just before 5 seconds. Normal tone and bulk. Cerebellum: Unable to assess. Sensation: Sensation is normal to touch throughout. Reflexes (right/left): 2+ in upper extremities while 0-1+ in knees and 0 at ankles. Plantars are downgoing bilaterally. Results AST of 31 and ALT of 24. Coagulation study: PT of 10.4, INR 1.0 and PTT of 25.2. - Laboratory Findings CBC and BMP: 03/14/20 12:53 03/14/20 12:56 Abnormal Lab Findings: Abnormal Labs 03/14/20 03/14/20 12:53 12:56 WBC 11.3 H Lymphocytes # 0.5 L Monocytes # 3.8 H Sodium 136 L Chloride 94 L BUN 24 H Glucose 271 H Assessment and Plan Assessment: This is a [age]-year-old woman that presented with the left hemiparesis as well as facial weakness and the worsening of dysarthria and that's noticed since the past midnight yesterday. Last normal is on 03/13/2020 at around 5 PM. Patient did not receive IV TPA since that she is outside the window. Acute hemiparesis (upper and lower extremity), left facial weakness and worse jerzy of dysarthria: Is either due to acute ischemic strove vs metastatsis from esophageal cancer Active esophageal cancer s/p radiation therapy 2019 Dysphagia due to above Chronic diabetes mellitus Peripheral neuropathy due to diabetes Very hard of hearing Severe cardiomyopathy with ejection fraction less than 20% Cellulitis of lower extremities Hyperlipidemia Plan: MRI the brain with contrast is ordered by ED team Lipid panels ordered. Patient was given aspirin 325mg once in the ED then was started on aspirin 325mg daily his as well as that was started on the Lipitor 40 mg daily for secondary stroke prophylaxis. PT OT and CUSHION INSTALLER are consulted The primary team had a discussion with the patient's niece who is DURABLE POWER OF WET MIX OPERATOR and and the goals of care will was discussed. The niece the notified the primary team that the patient was on palliative care at home and they're very close of Hospice decisional making the patient hospice but having difficulties with insurance approval. In agreement F MR the brain to find out exactly the reason for the patient's weakness but does not want any excessive measures or treatments. I spoke with the patient's niece and she stated that the she does not want any further workup at this time she just once the MRI to find out whether the patient had a stroke or whether this was metastasis. Hospice team is consulted. Will defer the rest of the medical management to the primary team. Thank you for the consultation. Calixto Maloney MD Neuro-Hospitalist. Time with Patient: Greater than 30
[2020-03-14] MEDS: INSULIN ASPART (NovoLOG) 100 UNIT/ML VIAL SQ SCH ×2 (18:55→21:38)
[2020-03-14] MEDS: carvediloL 12.5 MG TAB PO SCH (18:55)
[2020-03-14] MEDS: CLINDAMYCIN 600 MG in DEXTROSE 5% IN WATER 50 ML IVPB SCH ×4 (18:55→23:15)
--- NOTE | 2020-03-14 19:02 | MR ---
EXAMINATION TYPE: MR brain wo/w con DATE OF EXAM: 03/14/2020 COMPARISON: CT brain today. HISTORY: Weakness. CONTRAST: Standard multiplanar, multisequence MRI departmental protocol utilizing 7.5 mL intravenous Gadavist g adolinium contrast. There is diffuse cerebral cortical atrophy. There is no mass effect nor midline shift. Diffusion imag es show no evidence of an acute cortical infarct. The brainstem is intact. There is prominent left si de Virchow-Chencho space. On the T2 and FLAIR images there are numerous small foci of abnormal increase d signal at the guzman-white matter junction of both cerebral hemispheres. Total number is probably mor e than 50. Most of these lesions measure less than 5 mm. The cerebellum is intact. Corpus callosum is intact. Sella turcica is intact. The contrast images show no pathologic enhancement. There is normal enhancement of the venous sinuses . IMPRESSION: Cerebral atrophy. No acute intracranial abnormality. Numerous white matter lesions at the guzman-white matter junction of both cerebral hemispheres probably due to chronic small vessel ischemia.
[2020-03-14 20:22] LABS: Glucose,Whole Blood 227 mg/dL (75-99)
[2020-03-14] MEDS: GABAPENTIN 300 MG CAP PO SCH (20:31)
[2020-03-14] MEDS ORDERED: ATORVASTATIN 10 MG TAB PO SCH (21:00)
[2020-03-14] MEDS ORDERED: ISOSORBIDE MONONITRATE ER 30 MG TAB.ER.24H PO SCH (21:00)
[2020-03-14] MEDS ORDERED: ATORVASTATIN 40 MG TAB PO SCH (21:00)
[2020-03-14] MEDS: HEPARIN SODIUM,PORCINE 5,000 UNIT/ML 1 ML VIAL SQ SCH (21:37)
[2020-03-14] MEDS: NYSTATIN 100,000 UNIT/GM POWD 15 GM TOPICAL SCH (21:41)
[2020-03-15 05:46] LABS: Glucose,Whole Blood 199 mg/dL (75-99)
[2020-03-15] MEDS ORDERED: LEVOTHYROXINE 137 MCG TAB PO SCH (06:30)
[2020-03-15] MEDS: INSULIN ASPART (NovoLOG) 100 UNIT/ML VIAL SQ SCH ×2 (06:37→12:52)
[2020-03-15] MEDS ORDERED: LOSARTAN 25 MG TAB PO SCH (08:00)
[2020-03-15 08:40] LABS: African American GFR (CKD) >90 (>60 ml/min/1.73 sqM); Anion Gap 9 mmol/L; Blood Urea Nitrogen 23 mg/dL (7-17); Calcium 9.3 mg/dL (8.4-10.2); Carbon Dioxide 31 mmol/L (22-30); Chloride 94 mmol/L (98-107); Cholesterol 103 mg/dL (<200); Glucose 219 mg/dL (74-99); HDL Cholesterol 50 mg/dL (40-60); LDL Cholesterol,Calculated 39 mg/dL (0-99); Non-African American GFR(CKD) 80 (>60 ml/min/1.73 sqM); Potassium 4.4 mmol/L (3.5-5.1); Sodium 134 mmol/L (137-145); Triglycerides 70 mg/dL (<150)
[2020-03-15] MEDS ORDERED: ASPIRIN 325 MG TAB PO SCH (09:00)
[2020-03-15] MEDS ORDERED: FAMOTIDINE 20 MG/2 ML VIAL IV SCH (09:00)
[2020-03-15 09:07] LABS: Basophils % (A) 0 %; Eosinophils % (A) 0 %; HCT 35.9 % (34.0-46.0); HGB 11.2 gm/dL (11.4-16.0); Lymphocytes # (A) 0.4 k/uL (1.0-4.8); Lymphocytes % (A) 5 %; MCH 29.7 pg (25.0-35.0); MCHC 31.2 g/dL (31.0-37.0); MCV 95.1 fL (80.0-100.0); Mean Platelet Volume 7.9; Monocytes # (A) 2.4 k/uL (0-1.0); Monocytes % (A) 24 %; Neutrophils # (A) 6.6 k/uL (1.3-7.7); Neutrophils % (A) 68 %; Platelet Count 246 k/uL (150-450); RBC 3.77 m/uL (3.80-5.40); RDW 14.1 % (11.5-15.5); WBC 9.7 k/uL (3.8-10.6)
[2020-03-15] MEDS: CLINDAMYCIN 600 MG in DEXTROSE 5% IN WATER 50 ML IVPB SCH ×2 (09:32)
[2020-03-15] MEDS: carvediloL 12.5 MG TAB PO SCH (09:33)
[2020-03-15] MEDS: NYSTATIN 100,000 UNIT/GM POWD 15 GM TOPICAL SCH (09:33)
[2020-03-15] MEDS: GABAPENTIN 300 MG CAP PO SCH (09:33)
[2020-03-15] MEDS: HEPARIN SODIUM,PORCINE 5,000 UNIT/ML 1 ML VIAL SQ SCH (09:33)
[2020-03-15 11:04] VITALS: TEMP 98.1; BMI 32.1
--- NOTE | 2020-03-15 11:34 | P.PN ---
Subjective Progress Note Date: 03/15/20 Patient is doing well today. She is very hard of hearing. She does not have any complaints this morning. She is tolerating diet with no difficulty. She is able to move her left upper extremity better than yesterday. Her speech is clearing as well. No acute events overnight reported by nursing staff. Objective - Vital Signs Vital signs: Vital Signs Temp 98.1 F 03/15/20 08:00 Pulse 118 H 03/15/20 08:00 Resp 18 03/15/20 04:00 BP 121/74 03/15/20 08:00 Pulse Ox 92 L 03/15/20 08:00 Intake & Output 03/14/20 03/15/20 03/15/20 18:59 06:59 18:59 Intake Total 540 240 Output Total 0 Balance 540 240 Weight 81.647 kg 87.5 kg 87.5 kg Intake: Intake, IV Titration 300 Amount Clindamycin 600 mg In 50 Dextrose 5% in Water 50 ml @ 50 mls/hr IVPB Q8HR BLAS Rx#:[id number] Sodium Chloride 0.9% 1, 250 000 ml @ 50 mls/hr IV . Q20H BLAS Rx#:[id number] Oral 240 240 Output: Urine 0 Stool 0 Other: Voiding Method Diaper Diaper # Voids 2 1 # Bowel Movements 0 - Exam General: The patient is awake and alert, in no distress Eye: there is normal conjunctiva bilaterally. Neck: The neck is supple, there is no JVD. Cardiovascular: Normal S1-S2, no S3-S4, no murmurs. Respiratory: Lungs clear to auscultation bilaterally Gastrointestinal: Abdomen is soft, nontender Musculoskeletal: There is no pedal edema. Neurological:. Speech is normal. Skin: Skin is warm and dry - Labs CBC & Chem 7: 03/15/20 07:32 03/15/20 07:32 Labs: Abnormal Lab Results - Last 24 Hours (Table) 03/14/20 03/14/20 03/14/20 Range/Units 12:53 12:56 20:21 WBC 11.3 H (3.8-10.6) k/uL RBC (3.80-5.40) m/uL Hgb (11.4-16.0) gm/dL Lymphocytes # 0.5 L (1.0-4.8) k/uL Monocytes # 3.8 H (0-1.0) k/uL Sodium 136 L (137-145) mmol/L Chloride 94 L (98-107) mmol/L Carbon Dioxide (22-30) mmol/L BUN 24 H (7-17) mg/dL Glucose 271 H (74-99) mg/dL POC Glucose (mg/dL) 227 H (75-99) mg/dL 03/15/20 03/15/20 03/15/20 Range/Units 05:45 07:32 07:32 WBC (3.8-10.6) k/uL RBC 3.77 L (3.80-5.40) m/uL Hgb 11.2 L (11.4-16.0) gm/dL Lymphocytes # 0.4 L (1.0-4.8) k/uL Monocytes # 2.4 H (0-1.0) k/uL Sodium 134 L (137-145) mmol/L Chloride 94 L (98-107) mmol/L Carbon Dioxide 31 H (22-30) mmol/L BUN 23 H (7-17) mg/dL Glucose 219 H (74-99) mg/dL POC Glucose (mg/dL) 199 H (75-99) mg/dL Assessment and Plan Assessment: This is a 79-year-old female with complex past medical history noted below significant for esophageal cancer and severe scheming cardiomyopathy who presented to the emergency room with left-sided weakness involving upper and lower extremity and slurred speech. Patient was evaluated in the ER and admitted to the hospital for further management of her medical problems noted below. 1. Left-sided weakness involving upper and lower extremity: Exact etiology unclear. CVA and brain metastasis ruled out. MRI of the brain showed no acute intracranial findings. Computed tomography scan of the head in the ER showed no acute intracranial findings. Neurology consulted for further evaluation. Carotid Doppler showed no hemodynamically significant stenosis. I reviewed her echocardiogram from December 2019 showing no intracardiac source. 2. Underlying esophageal cancer with no known metastasis. Patient was scheduled for PET scan next week. 3. Bilateral lower extremity cellulitis, started on IV clindamycin (ALLERGIC to penicillin) day #2. Finish 5 days course of antibiotic. 4. Sepsis without septic shock, mild. Improved with IV fluid hydration and antibiotic. 5. Severe cardiomyopathy with ejection fraction less than 20%, resume home dose of Lasix a day 6. Paroxysmal atrial fibrillation not on anticoagulation (probably secondary to increased risk of bleeding with underlying esophageal cancer0 7. Severe physical debility 8. Type 2 diabetes, hold oral agents and continue sliding scale insulin 9. Chronic medical problems: GERD, bilateral hearing loss, hyperlipidemia, hypertension, peripheral neuropathy, osteoarthritis, restless leg syndrome 10. GI and DVT prophylaxis with IV famotidine and subcu heparin 11. CODE STATUS, patient is DO NOT RESUSCITATE/DO NOT INTUBATE per her DURABLE POWER OF LAYOUT TECHNICIAN Today, her niece has a meeting with hospice to discuss her just logistics. She informed me that she was having difficulty getting the insurance approving hospice at home for her mother. Given worsening debility of the patient she may not be a good candidate to be at home as she lives alone with her handicapped daughter. She might be better at the detention or at the hospice house. Awaiting meeting outcome today for discharge planning. Continue supportive care otherwise. Dysphagia diet as tolerated.
[2020-03-15 11:39] LABS: Glucose,Whole Blood 277 mg/dL (75-99)
[2020-03-15] MEDS ORDERED: bisacodyL 5 MG TABLET.DR PO PRN (13:50)
[2020-03-15 15:35] VITALS: BP 116/81; PULSE 115
[2020-03-15] MEDS ORDERED: BUMETANIDE 1 MG TAB PO SCH (16:00)
--- NOTE | 2020-03-15 18:45 | P.PN ---
Subjective Progress Note Date: 03/15/20 The patient was seen today and feels somewhat improvment today compared yesterday and denies any worsening the of her symptoms. She continues to have pain over the left side. MR the brain was reported as cerebral atrophy. No acute intracranial abnormality. Numerous white matter lesion at the guzman-white matter junction of both cerebral hemisphere probably due to chronic small vessel ischemia. Objective - Vital Signs Vital signs: Vital Signs Temp 98.1 F 03/15/20 08:00 Pulse 115 H 03/15/20 12:00 Resp 18 03/15/20 04:00 BP 116/81 03/15/20 12:00 Pulse Ox 94 L 03/15/20 12:00 Intake & Output 03/14/20 03/15/20 03/15/20 18:59 06:59 18:59 Intake Total 540 240 Output Total 0 Balance 540 240 Weight 81.647 kg 87.5 kg 87.5 kg Intake: Intake, IV Titration 300 Amount Clindamycin 600 mg In 50 Dextrose 5% in Water 50 ml @ 50 mls/hr IVPB Q8HR BLAS Rx#:[id number] Sodium Chloride 0.9% 1, 250 000 ml @ 50 mls/hr IV . Q20H BLAS Rx#:[id number] Oral 240 240 Output: Urine 0 Stool 0 Other: Voiding Method Diaper Diaper # Voids 2 1 # Bowel Movements 0 - Exam GENERAL: The patient is lying in bed and is not in acute distress. INTEGUMENTARY: She has a erythema of the bilateral lower extremities and is seems from the curran downward would say the medical the last two third of the lower extremities she has erythema is tender to touch as well (Niece states she has cellulitis) NEUROLOGICAL: Higher mental function: The patient is awake, alert, oriented to self, place and time. Patient is following simple commands. No aphasia and no neglect from limited language. Cranial nerves: The pupils are round, equal and reactive to light and accommo dation. Visual stevenson are full to confrontation throughout. Extraocular movement is intact no nystagmus is noted. Facial sensation is normal to touch throughout. The facial strength: No facial weakness noted. Hearing is very hard of hearing bilaterally (baseline). Tongue is midline and moved [id number] without any difficulty. Mild dysarthria is noted. Motor: Gait is deferred. The strength: Was limited because of patient pain but the patient was able to move bilateral upper extremities above gravity and there is no drift over bilateral upper extremities. As well as she is able to lift of bilateral lower extremities above gravity felt the right lower she's able to lift it more than the left but she is able to home both without any drift of the left lower extremity. Again was limited because of the patient pain. Normal tone and bulk. Cerebellum: Unable to assess. Sensation: Sensation is normal to touch throughout. Reflexes (right/left): 2+ in upper extremities while 0-1+ in knees and 0 at ankles. Plantars are downgoing bilaterally. - Labs CBC & Chem 7: 03/15/20 07:32 03/15/20 07:32 Labs: Abnormal Lab Results - Last 24 Hours (Table) 03/14/20 03/15/20 03/15/20 Range/Units 20:21 05:45 07:32 RBC (3.80-5.40) m/uL Hgb (11.4-16.0) gm/dL Lymphocytes # (1.0-4.8) k/uL Monocytes # (0-1.0) k/uL Sodium 134 L (137-145) mmol/L Chloride 94 L (98-107) mmol/L Carbon Dioxide 31 H (22-30) mmol/L BUN 23 H (7-17) mg/dL Glucose 219 H (74-99) mg/dL POC Glucose (mg/dL) 227 H 199 H (75-99) mg/dL 03/15/20 03/15/20 Range/Units 07:32 11:38 RBC 3.77 L (3.80-5.40) m/uL Hgb 11.2 L (11.4-16.0) gm/dL Lymphocytes # 0.4 L (1.0-4.8) k/uL Monocytes # 2.4 H (0-1.0) k/uL Sodium (137-145) mmol/L Chloride (98-107) mmol/L Carbon Dioxide (22-30) mmol/L BUN (7-17) mg/dL Glucose (74-99) mg/dL POC Glucose (mg/dL) 277 H (75-99) mg/dL Assessment and Plan Assessment: This is a [age]-year-old woman that presented with the left hemiparesis as well as facial weakness and the worsening of dysarthria and that's noticed since the past midnight yesterday. Last normal is on 03/13/2020 at around 5 PM. Patient did not receive IV TPA since that she is outside the window. Acute transient hemiparesis (upper and lower extremity), left facial weakness and worsening of dysarthria: Seems Transient ischemic attack (TIA) Active esophageal cancer s/p radiation therapy 2019 Dysphagia due to above Chronic diabetes mellitus Peripheral neuropathy due to diabetes Very hard of hearing Severe cardiomyopathy with ejection fraction less than 20% Cellulitis of lower extremities Hyperlipidemia Plan: MRI the brain was reported as cerebral atrophy. No acute intracranial abnormality. Numerous white matter lesion at the guzman-white matter junction of both cerebral hemisphere probably due to chronic small vessel ischemia. Carotid duplex is reported as mild others chronic changes without hemodynamic significant stenosis seen in either internal carotid artery. Patient was given aspirin 325mg once in the ED then was started on aspirin 325mg daily his as well as that was started on the Lipitor 40 mg daily for secondary stroke prophylaxis. PT OT and BORDER PATROL AGENT are consulted The primary team had a discussion with the patient's niece who is DURABLE POWER OF PRIMARY THERAPIST and and the goals of care will was discussed. The niece the notified the primary team that the patient was on palliative care at home and they're very close of Hospice decisional making the patient hospice but having difficulties with insurance approval. Hospice team is consulted. Was verified by the patient's nurse that the patient was moved to hospice house. Will defer the rest of the medical management to the primary team. Will sign off. Calixto Maloney MD Neuro-Hospitalist. Time with Patient: Less than 30
[2020-03-16] MEDS ORDERED: ASPIRIN 81 MG PO SCH (09:00)
== END 2020-03-15 16:25 | disposition hospice, inpatient (51) | DRG 56 ==
LOC: EC 11:44 → 3SCARD 15:00
PROVIDERS: ADMIT Internal Medicine; ATTEND Internal Medicine
DX: G81.94 Hemiplegia, unspecified affecting left nondominant side (principal); A41.9 Sepsis, unspecified organism; I42.8 Other cardiomyopathies; C15.5 Malignant neoplasm of lower third of esophagus; L03.115 Cellulitis of right lower limb; L03.116 Cellulitis of left lower limb; E03.9 Hypothyroidism, unspecified; E11.42 Type 2 diabetes mellitus with diabetic polyneuropathy; E78.5 Hyperlipidemia, unspecified; G25.81 Restless legs syndrome; H91.93 Unspecified hearing loss, bilateral; I50.9 Heart failure, unspecified; I11.0 Hypertensive heart disease with heart failure; I44.0 Atrioventricular block, first degree; I44.7 Left bundle-branch block, unspecified; I48.0 Paroxysmal atrial fibrillation; K21.9 Gastro-esophageal reflux disease without esophagitis; M19.90 Unspecified osteoarthritis, unspecified site; R29.810 Facial weakness; Z51.5 Encounter for palliative care; Z66 Do not resuscitate; Z79.4 Long term (current) use of insulin; Z79.82 Long term (current) use of aspirin; Z79.890 Hormone replacement therapy; Z79.899 Other long term (current) drug therapy; Z82.49 Family history of ischemic heart disease and other diseases of the circulatory system; Z85.44 Personal history of malignant neoplasm of other female genital organs; Z86.73 Personal history of transient ischemic attack (TIA), and cerebral infarction without residual deficits; Z87.440 Personal history of urinary (tract) infections; Z87.442 Personal history of urinary calculi; Z88.0 Allergy status to penicillin; R47.81 Slurred speech; R47.1 Dysarthria and anarthria; Z90.710 Acquired absence of both cervix and uterus; Z92.21 Personal history of antineoplastic chemotherapy; Z92.3 Personal history of irradiation; R53.81 Other malaise; Z98.42 Cataract extraction status, left eye; Z98.41 Cataract extraction status, right eye; H93.13 Tinnitus, bilateral; Z79.84 Long term (current) use of oral hypoglycemic drugs; Z88.8 Allergy status to other drugs, medicaments and biological substances
CPT/HCPCS: 36415; 70450; 70553; 71046; 80048; 80053; 80061; 84484; 85025; 85610; 85730; 93005; 93880; 99285

== ENCOUNTER 2020-03-15 15:29 | Inpatient (IN) | payer MEDICAID ==
[2020-03-15] MEDS: INSULIN ASPART (NovoLOG) 100 UNIT/ML VIAL SQ SCH ×2 (17:32→20:35)
[2020-03-15] MEDS: carvediloL 12.5 MG TAB PO SCH (17:32)
[2020-03-15] MEDS: BUMETANIDE 1 MG TAB PO SCH (17:32)
[2020-03-15 20:04] LABS: Glucose,Whole Blood 329 mg/dL (75-99)
[2020-03-15] MEDS: FAMOTIDINE 20 MG TAB PO SCH (20:34)
[2020-03-15] MEDS: GABAPENTIN 300 MG CAP PO SCH (20:34)
[2020-03-15] MEDS: ISOSORBIDE MONONITRATE ER 30 MG TAB.ER.24H PO SCH (20:34)
[2020-03-15] MEDS: NYSTATIN 100,000 UNIT/GM POWD 15 GM TOPICAL SCH (20:35)
[2020-03-16 06:18] LABS: Glucose,Whole Blood 203 mg/dL (75-99)
[2020-03-16] MEDS: INSULIN ASPART (NovoLOG) 100 UNIT/ML VIAL SQ SCH ×4 (06:29→20:58)
[2020-03-16] MEDS: LEVOTHYROXINE 137 MCG TAB PO SCH (06:29)
[2020-03-16] MEDS ORDERED: ACETAMINOPHEN TAB 325 MG TAB PO PRN (08:15)
[2020-03-16] MEDS: GABAPENTIN 300 MG CAP PO SCH ×2 (08:57→20:58)
[2020-03-16] MEDS: ONDANSETRON 4 MG/2 ML VIAL IVP PRN ×3 (08:57→20:58)
[2020-03-16] MEDS: LOSARTAN 25 MG TAB PO SCH (08:57)
[2020-03-16] MEDS: BUMETANIDE 1 MG TAB PO SCH ×2 (08:57→16:08)
[2020-03-16] MEDS: ACETAMINOPHEN TAB 325 MG TAB PO PRN (08:58)
[2020-03-16] MEDS: carvediloL 12.5 MG TAB PO SCH ×2 (09:05→16:08)
[2020-03-16] MEDS: NYSTATIN 100,000 UNIT/GM POWD 15 GM TOPICAL SCH ×2 (09:05→20:59)
--- NOTE | 2020-03-16 13:26 | P.HPIM ---
<Venkat Arriola - Last Filed: 03/16/20 12:52> History of Present Illness H&P Date: 03/16/20 History of presenting illness: Patient is a 79-year-old female with past medical history of CAD with severe systolic cardiomyopathy with a severely impaired ejection fraction of less than 20%, hypertension, hyperlipidemia, hypothyroidism, ril-tuvbqvo-sxksjxgpl diabetes mellitus type 2, neuropathy, and esophageal cancer with metastasis. Patient presented to [facility] emergency department with her Christina reynolds (whom is DPOA) on 03/14/20 with a chief complaint of left-sided weakness and slurred speech. A CT brain was obtained revealing no acute intracranial hemorrhage or midline shift with moderate to severe diffuse age-related cerebral atrophy and mild chronic small vessel ischemic change redemonstrated. MRI revealed cerebral atrophy with no acute intracranial abnormalities. Secondary to patient's significant medical history and continued debilitating illness, patient's DPOA and attending provider discussed hospice, and the DPOA decided Hospice care would be best for the patient. On 03/15/20 patient was admitted for inpatient hospice while awaiting placement in hospice home. Patient alert to person and place, confused to time and situation and is a poor historian. Review of systems: Unable to complete full ROS secondary to patient's mentation. Physical exam: General: Frail and emaciated. Appears comfortable showing no signs of acute distress. Derm: warm, dry Head: atraumatic, normocephalic, symmetric, patient hard of hearing. Eyes: No lid lag, anicteric sclera Mouth: no lip lesion, mucus membranes moist Cardiovascular: Irregularly irregular rhythm, soft murmur, positive posterior tibial pulse bilateral, Lungs: Respirations even, regular, and unlabored on 2 L O2 via nasal cannula. Lungs CTA bilateral, no rhonchi, no rales, no wheezing and no accessory muscle use Abdominal: soft, nontender to palpation, no guarding, no appreciable organomegaly Ext: no gross muscle atrophy, no edema, no contractures Neuro: Speech slurred. Patient exhibiting weakness in all 4 extremities worse in left upper extremity. Psych: Alert to person and place only, oriented, appropriate affect Plan of care: Esophageal cancer with metastasis -Patient admitted under inpatient hospice care while awaiting placement in a hospice home. Severe systolic cardiomyopathy -Echocardiogram completed 12/18/19 revealed a severely impaired ejection fraction of less than 20%. -Continue daily Bumex 1 mg twice daily, Coreg 25 mg twice daily, and Imdur 30 mg nightly. Diabetes Mellitus type II -Hold oral glycemic medications. Patient on glycemic protocol with NovoLog sliding scale. Hypertension -Continue daily medication management with lovastatin, isosorbide mononitrate, and carvedilol. Hypothyroidism -Continue Synthroid 137 g daily. The patient is admitted with an anticipated greater than 2 midnight stay for inpatient hospice care while awaiting placement in a hospice home. Surrogate decision-maker: Christina Grider (pt's neice and DPOA). CODE STATUS: DO NOT RESUSCITATE/DO NOT INTUBATE . Comfort care. Discussed with: Patient, RN, case management, and left a voicemail updating DPOA-Christina as she was not able to be reached. Anticipated discharge date: Tomorrow Anticipated discharge place: [facility] A total of 45 minutes was spent on the care of this complex patient more than 50% of the time was spent in counseling and care coordination. 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 History of Any Multi-Drug Resistant Organisms: None Reported Past Surgical History: Appendectomy, Section, Hysterectomy Additional Past Surgical History / Comment(s): removal of vaginal tumor, vaginal ablation x2, egd's/colonoscopy, cancerous Jacob's tumor removed from [facility] endoscopically July 2018, lithotripsy, 1940s had strep infection L lower leg and had bone scraping done, larygoscopies, bilateral cataract removals. Past Anesthesia/Blood Transfusion Reactions: No Reported Reaction Additional Past Anesthesia/Blood Transfusion Reaction / Comment(s): PATIENT HAS HAD PROBLEM W/HYPOGLYCEMIC EPISODES WHEN COMING OUT OF ANESTHESIA DEPENDING ON LENGTH OF FASTING PRIOR Smoking Status: Never smoker - Past Family History Mother Family Medical History: CVA/TIA Father Family Medical History: Coronary Artery Disease (CAD) Medications and Allergies Home Medications Medication Instructions Recorded Confirmed Type Isosorbide Mononitrate [Imdur] 30 mg PO HS 12/14/13 03/15/20 History rOPINIRole HCL [Requip] 0.25 mg PO BID@0800,1200 12/14/13 03/15/20 History Lansoprazole 30 mg PO BID@0800,1900 05/12/15 03/15/20 History sitaGLIPtin PHOS/metFORMIN HCL 1 tab PO BID 05/12/15 03/15/20 History [Janumet 50-500 mg Tablet] Famotidine 40 mg PO HS 12/10/17 03/15/20 History Gabapentin [Neurontin] 300 mg PO BID 12/10/17 03/15/20 History Levothyroxine Sodium [Synthroid] 137 mcg PO DAILY 12/10/17 03/15/20 History Losartan [Cozaar] 25 mg PO DAILY@0800 12/10/17 03/15/20 History metFORMIN HCL [Glucophage] 500 mg PO BID 12/10/17 03/15/20 History rOPINIRole HCL [Requip] 0.5 mg PO HS 12/10/17 03/15/20 History Nystatin 100,000 Unit/gm Powd 1 applic TOPICAL BID #30 gm 12/13/17 03/15/20 Rx [Mycostatin Powder] Bumetanide [BUMEX] 1 mg PO BID 03/14/20 03/15/20 History Carvedilol [Coreg] 25 mg PO BID@0800,1700 03/14/20 03/15/20 History Potassium Chloride [Klor-Con 20 20 meq PO DAILY@1200 03/14/20 03/15/20 History Packets] Acetaminophen Tab [Tylenol] 650 mg PO Q6HR PRN tab 02/03/21 Rx Ondansetron Odt [Zofran ODT] 4 mg PO Q8HR PRN #30 tab 03/16/20 Rx Allergies Allergy/AdvReac Type Severity Reaction Status Date / Time pantoprazole Allergy Unknown Rash/Hives Verified 03/14/20 14:55 amoxicillin Allergy Rash/Hives Verified 03/14/20 14:55 empagliflozin Allergy Unknown Verified 03/14/20 14:55 [From Jardiance] nylon Allergy Rash/Hives Verified 03/14/20 14:55 dapagliflozin [From Farxiga] AdvReac severe Verified 03/14/20 14:55 dizziness,blurred vision glyxamber Allergy Rash/Hives Uncoded 02/25/19 15:46 Physical Exam Vitals: Vital Signs Temp Pulse Resp BP Pulse Ox 03/16/20 08:26 106 H 22 03/16/20 08:00 22 03/16/20 03:27 105 H 20 96 03/16/20 02:00 90 20 03/16/20 00:00 90 20 93 L 03/15/20 20:00 98.5 F 95 20 130/60 94 L 03/15/20 16:00 100.0 F H 118 H 116/78 90 L Intake and Output 03/15/20 03/16/20 03/16/20 22:59 06:59 14:59 Intake Total 240 250 Balance 240 250 Intake: IV 10 Invasive Line 1 10 Oral 240 240 Other: Voiding Method Diaper Diaper Diaper Incontinent Incontinent Incontinent # Voids 1 1 Weight 87.5 kg 87 kg Results Labs: Abnormal Lab Results - Last 24 Hours (Table) 03/15/20 03/16/20 Range/Units 20:03 06:16 POC Glucose (mg/dL) 329 H 203 H (75-99) mg/dL <Divine Braden - Last Filed: 03/16/20 17:43> History of Present Illness I discussed the care with Venkat Arriola NP and reviewed the findings and plan as documented in the note above. I did not staff this patient on this date. Physical Exam Osteopathic Statement: *. No significant issues noted on an osteopathic structural exam other than those noted in the History and Physical/Consult. Vitals: Vital Signs Temp Pulse Resp BP Pulse Ox 03/16/20 16:00 98.6 F 92 16 03/16/20 14:00 14 03/16/20 12:00 78 14 03/16/20 08:26 106 H 22 03/16/20 08:00 22 03/16/20 03:27 105 H 20 96 03/16/20 02:00 90 20 03/16/20 00:00 90 20 93 L 03/15/20 20:00 98.5 F 95 20 130/60 94 L Intake and Output 03/16/20 03/16/20 03/16/20 06:59 14:59 22:59 Intake Total 260 Balance 260 Intake: IV 20 Invasive Line 1 20 Oral 240 Other: Voiding Method Diaper Diaper Incontinent Incontinent # Voids 1 3 Weight 87 kg Results Labs: Abnormal Lab Results - Last 24 Hours (Table) 03/15/20 03/16/20 Range/Units 20:03 06:16 POC Glucose (mg/dL) 329 H 203 H (75-99) mg/dL
[2020-03-16] MEDS ORDERED: bisacodyL 10 MG SUPP RECTAL STA (17:07)
[2020-03-16] MEDS: FAMOTIDINE 20 MG TAB PO SCH (20:58)
[2020-03-16] MEDS: ISOSORBIDE MONONITRATE ER 30 MG TAB.ER.24H PO SCH (20:59)
[2020-03-17] MEDS: LEVOTHYROXINE 137 MCG TAB PO SCH (05:29)
[2020-03-17] MEDS: INSULIN ASPART (NovoLOG) 100 UNIT/ML VIAL SQ SCH ×4 (08:09→20:29)
[2020-03-17] MEDS: NYSTATIN 100,000 UNIT/GM POWD 15 GM TOPICAL SCH ×2 (08:10→21:38)
[2020-03-17] MEDS: LOSARTAN 25 MG TAB PO SCH (09:08)
[2020-03-17] MEDS: BUMETANIDE 1 MG TAB PO SCH ×2 (09:08→17:41)
[2020-03-17] MEDS: carvediloL 12.5 MG TAB PO SCH ×3 (09:08→17:41)
[2020-03-17] MEDS: polyethylene glycoL 3350 17 GM POWD.PACK PO SCH (09:09)
[2020-03-17] MEDS: GABAPENTIN 300 MG CAP PO SCH ×2 (09:09→20:29)
[2020-03-17] MEDS: FAMOTIDINE 20 MG TAB PO SCH (10:51)
[2020-03-17 12:08] VITALS: RESP 16
--- NOTE | 2020-03-17 15:29 | P.PN ---
<Venkat Arriola - Last Filed: 03/17/20 15:22> Subjective Progress Note Date: 03/17/20 History of presenting illness: Patient is a 79-year-old female with past medical history of CAD with severe systolic cardiomyopathy with a severely impaired ejection fraction of less than 20%, hypertension, hyperlipidemia, hypothyroidism, ouw-cnadcep-bsmzlufny diabetes mellitus type 2, neuropathy, and esophageal cancer with metastasis. Patient presented to [facility] emergency department with her Christina reynolds (whom is DPOA) on 03/14/20 with a chief complaint of left-sided weakness and slurred speech. A CT brain was obtained revealing no acute intracranial hemorrhage or midline shift with moderate to severe diffuse age-related cerebral atrophy and mild chronic small vessel ischemic change redemonstrated. MRI revealed cerebral atrophy with no acute intracranial abnormalities. Secondary to patient's significant medical history and continued debilitating illness, patient's DPOA and attending provider discussed hospice, and the DPOA decided Hospice care would be best for the patient. On 03/15/20 patient was admitted for inpatient hospice while awaiting placement in hospice home. Patient alert to person and place, confused to time and situation and is a poor historian. Physical exam: Patient was seen and fully evaluated at the bedside. Condition remains unchanged. She remains alert and pleasantly oriented to person and place, confused to time and situation. General: Appears comfortable showing no signs of acute distress. Derm: warm, dry Head: atraumatic, normocephalic, symmetric, patient hard of hearing. Eyes: No lid lag, anicteric sclera Mouth: no lip lesion, mucus membranes moist Cardiovascular: Irregularly irregular rhythm, soft murmur, positive posterior tibial pulse bilateral, Lungs: Respirations even, regular, and unlabored on 2 L O2 via nasal cannula with SpO2 95%. Lungs CTA bilateral, no rhonchi, no rales, no wheezing and no accessory muscle usage. Abdominal: soft, nontender to palpation, no guarding, no appreciable organomegaly Ext: no gross muscle atrophy, no edema, no contractures Neuro: Mild slurred speech. Patient exhibiting weakness in all 4 extremities worse in left upper extremity. Psych: Alert to person and place only, oriented, appropriate affect Plan of care: Esophageal cancer with metastasis -Patient admitted under inpatient hospice care while awaiting placement in a hospice home. Severe systolic cardiomyopathy -Echocardiogram completed 12/18/19 revealed a severely impaired ejection fraction of less than 20%. -Continue daily Bumex 1 mg twice daily, Coreg 25 mg twice daily, and Imdur 30 mg nightly. Diabetes Mellitus type II -Hold oral glycemic medications. Patient on glycemic protocol with NovoLog sliding scale. Hypertension -Continue daily medication management with lovastatin, isosorbide mononitrate, and carvedilol. Hypothyroidism -Continue Synthroid 137 g daily. Surrogate decision-maker: Christina Grider (pt's neice and DPOA). CODE STATUS: DO NOT RESUSCITATE/DO NOT INTUBATE . Comfort care. Discussed with: Patient, RN, and case management. Anticipated discharge date: Tomorrow Anticipated discharge place: [facility], awaiting bed A total of 45 minutes was spent on the care of this complex patient more than 50% of the time was spent in counseling and care coordination. Objective - Vital Signs Vital signs: Vital Signs Temp 97.6 F 03/17/20 12:08 Pulse 61 03/17/20 12:08 Resp 16 03/17/20 12:08 BP 127/82 03/17/20 12:08 Pulse Ox 95 03/17/20 12:08 Intake & Output 03/16/20 03/17/20 03/17/20 18:59 06:59 18:59 Intake Total 260 250 Balance 260 250 Intake: IV 20 10 Invasive Line 1 20 10 Oral 240 240 Other: Voiding Method Diaper Diaper Diaper Incontinent Incontinent Incontinent # Voids 1 <Divine Braden - Last Filed: 03/17/20 15:56> Subjective I discussed the care with Venkat Arriola NP and reviewed the findings and plan as documented in the note above. I did not staff this patient on this date. Objective - Vital Signs Vital signs: Vital Signs Temp 97.6 F 03/17/20 12:08 Pulse 61 03/17/20 12:08 Resp 16 03/17/20 12:08 BP 127/82 03/17/20 12:08 Pulse Ox 95 03/17/20 12:08 Intake & Output 03/16/20 03/17/20 03/17/20 18:59 06:59 18:59 Intake Total 260 250 Balance 260 250 Intake: IV 20 10 Invasive Line 1 20 10 Oral 240 240 Other: Voiding Method Diaper Diaper Diaper Incontinent Incontinent Incontinent # Voids 1
[2020-03-17] MEDS: ACETAMINOPHEN TAB 325 MG TAB PO PRN ×2 (16:22→22:15)
[2020-03-17 20:08] LABS: Glucose,Whole Blood 304 mg/dL (75-99)
[2020-03-17] MEDS: ISOSORBIDE MONONITRATE ER 30 MG TAB.ER.24H PO SCH (20:29)
[2020-03-18 05:11] VITALS: BP 123/75; PULSE 76; TEMP 97.8
[2020-03-18] MEDS: LEVOTHYROXINE 137 MCG TAB PO SCH (06:04)
[2020-03-18 07:31] LABS: Glucose,Whole Blood 224 mg/dL (75-99)
[2020-03-18] MEDS: ONDANSETRON 4 MG/2 ML VIAL IVP PRN (09:31)
[2020-03-18] MEDS: carvediloL 12.5 MG TAB PO SCH (09:33)
[2020-03-18] MEDS: GABAPENTIN 300 MG CAP PO SCH (09:33)
[2020-03-18] MEDS: LOSARTAN 25 MG TAB PO SCH (09:33)
[2020-03-18] MEDS: polyethylene glycoL 3350 17 GM POWD.PACK PO SCH (09:34)
[2020-03-18] MEDS: NYSTATIN 100,000 UNIT/GM POWD 15 GM TOPICAL SCH (09:34)
[2020-03-18] MEDS: BUMETANIDE 1 MG TAB PO SCH (09:34)
[2020-03-18] MEDS: INSULIN ASPART (NovoLOG) 100 UNIT/ML VIAL SQ SCH ×2 (09:34→12:50)
[2020-03-18] MEDS ORDERED: MORPHINE SULFATE 4 MG/ML SYRINGE IVP STA (12:36)
--- NOTE | 2020-03-18 14:16 | P.DS ---
<Venkat Arriola - Last Filed: 03/18/20 14:14> Providers Expected date of discharge: 03/18/20 Hospital Course: Discharge Diagnosis: -Esophageal cancer with metastasis -Severe systolic cardiomyopathy -Diabetes Mellitus type II -Hypertension -Hypothyroidism Hospital Course: Patient is a 79-year-old female with past medical history of CAD with severe systolic cardiomyopathy with a severely impaired ejection fraction of less than 20%, hypertension, hyperlipidemia, hypothyroidism, ssx-yexsmou-rhhwmumla diabetes mellitus type 2, neuropathy, and esophageal cancer with metastasis. Patient presented to [facility] emergency department with her Christina reynolds (whom is DPOA) on 03/14/20 with a chief complaint of left-sided weakness and slurred speech. A CT brain was obtained revealing no acute intracranial hemorrhage or midline shift with moderate to severe diffuse age-related cerebral atrophy and mild chronic small vessel ischemic change redemonstrated. MRI revealed cerebral atrophy with no acute intracranial abnormalities. Secondary to patient's significant medical history and continued debilitating illness, patient's DPOA and attending provider discussed hospice, and the DPOA decided Hospice care would be best for the patient. On 03/15/20 patient was admitted for inpatient hospice while awaiting placement in hospice home. Patient has been pleasantly alert to person and place and confused to time and situation throughout hospitalization. Pt being discharged to [facility] under hospice care. Physical exam: Patient seen and examined at bedside this morning. She reports having some nausea and dry heaves with breakfast and was being medicated with Zofran at that time. Patient reports her pain is currently controlled after receiving some Tylenol yesterday evening. and denies having any other complaints or needs at this time. Vital signs reviewed and stable. General: Appears comfortable showing no signs of acute distress. Derm: warm, dry Head: atraumatic, normocephalic, symmetric, patient hard of hearing. Eyes: No lid lag, anicteric sclera Mouth: no lip lesion, mucus membranes moist Cardiovascular: Irregularly irregular rhythm, soft murmur, positive posterior tibial pulse bilateral, Lungs: Respirations even, regular, and unlabored on 2 L O2 via nasal cannula with SpO2 98% this morning Lungs CTA bilateral, no rhonchi, no rales, no wheezing and no accessory muscle usage. Abdominal: soft, nontender to palpation, no guarding, no appreciable organ omegaly Ext: no gross muscle atrophy, no edema, no contractures Neuro: Mild slurred speech. Patient exhibiting weakness in all 4 extremities worse in left upper extremity. Psych: Alert to person and place only, oriented, appropriate affect A total of 45 minutes of time were spent preparing this complex discharge summary. Plan - Discharge Summary New Discharge Prescriptions: New Acetaminophen Tab [Tylenol] 650 mg PO Q6HR PRN tab PRN Reason: Fever And/ Or Pain Ondansetron Odt [Zofran ODT] 4 mg PO Q8HR PRN #30 tab PRN Reason: Nausea And Vomiting Continue Isosorbide Mononitrate [Imdur] 30 mg PO HS rOPINIRole HCL [Requip] 0.25 mg PO BID@0800,1200 Lansoprazole 30 mg PO BID@0800,1900 sitaGLIPtin PHOS/metFORMIN HCL [Janumet 50-500 mg Tablet] 1 tab PO BID metFORMIN HCL [Glucophage] 500 mg PO BID Gabapentin [Neurontin] 300 mg PO BID rOPINIRole HCL [Requip] 0.5 mg PO HS Famotidine 40 mg PO HS Losartan [Cozaar] 25 mg PO DAILY@0800 Levothyroxine Sodium [Synthroid] 137 mcg PO DAILY Nystatin 100,000 Unit/gm Powd [Mycostatin Powder] 1 applic TOPICAL BID #30 gm Bumetanide [BUMEX] 1 mg PO BID Carvedilol [Coreg] 25 mg PO BID@0800,1700 Potassium Chloride [Klor-Con 20 Packets] 20 meq PO DAILY@1200 Discontinued Multivitamins, Thera [Multivitamin (formulary)] 1 tab PO DAILY@1200 Cholecalciferol (Vitamin D3) [Vitamin D3] 2,000 unit PO DAILY Dulaglutide [Trulicity] 0.5 mg SQ MO [employer] 200 mg PO DAILY@1200 Atorvastatin [Lipitor] 10 mg PO HS Discharge Medication List Isosorbide Mononitrate [Imdur] 30 mg PO HS 12/14/13 [History] rOPINIRole HCL [Requip] 0.25 mg PO BID@0800,1200 12/14/13 [History] Lansoprazole 30 mg PO BID@0800,1900 05/12/15 [History] sitaGLIPtin PHOS/metFORMIN HCL [Janumet 50-500 mg Tablet] 1 tab PO BID 03/31/16 [History] Famotidine 40 mg PO HS 12/10/17 [History] Gabapentin [Neurontin] 300 mg PO BID 12/10/17 [History] Levothyroxine Sodium [Synthroid] 137 mcg PO DAILY 12/10/17 [History] Losartan [Cozaar] 25 mg PO DAILY@0800 12/10/17 [History] metFORMIN HCL [Glucophage] 500 mg PO BID 12/10/17 [History] rOPINIRole HCL [Requip] 0.5 mg PO HS 12/10/17 [History] Nystatin 100,000 Unit/gm Powd [Mycostatin Powder] 1 applic TOPICAL BID #30 gm 12/13/17 [Rx] Bumetanide [BUMEX] 1 mg PO BID 03/14/20 [History] Carvedilol [Coreg] 25 mg PO BID@0800,1700 03/14/20 [History] Potassium Chloride [Klor-Con 20 Packets] 20 meq PO DAILY@1200 03/14/20 [History] Acetaminophen Tab [Tylenol] 650 mg PO Q6HR PRN tab 03/16/20 [Rx] Ondansetron Odt [Zofran ODT] 4 mg PO Q8HR PRN #30 tab 03/16/20 [Rx] Patient Instructions/Handouts: Weakness (DC) Activity/Diet/Wound Care/Special Instructions: Activity: As tolerated, hospice care Diet: Comfort feeds Special Instructions: Pt discharged to [facility] facility under hospice care. Discharge Disposition: DISCH TO HOSPICE MED FACILTY <Divine Braden - Last Filed: 03/18/20 15:34> Providers Date of admission: 03/15/20 16:24 Attending physician: Alli Edmondson Primary care physician: [facility] Course: I discussed the care with Venkat Arriola NP and reviewed the findings and plan as documented in the note above. I did not staff this patient on this date.
== END 2020-03-18 14:20 | disposition hospice, home (50) | DRG 951 ==
LOC: 3SCARD 16:24 → 5NMEDONC 03-16 23:18
PROVIDERS: ADMIT Internal Medicine; ATTEND Internal Medicine
DX: Z51.5 Encounter for palliative care (principal); C15.9 Malignant neoplasm of esophagus, unspecified; I42.9 Cardiomyopathy, unspecified; E03.9 Hypothyroidism, unspecified; E11.41 Type 2 diabetes mellitus with diabetic mononeuropathy; E78.5 Hyperlipidemia, unspecified; G25.81 Restless legs syndrome; H91.90 Unspecified hearing loss, unspecified ear; I10 Essential (primary) hypertension; I25.10 Atherosclerotic heart disease of native coronary artery without angina pectoris; Z66 Do not resuscitate; K22.70 Barrett's esophagus without dysplasia; I48.91 Unspecified atrial fibrillation; Z90.710 Acquired absence of both cervix and uterus; Z87.442 Personal history of urinary calculi; Z87.440 Personal history of urinary (tract) infections; Z86.73 Personal history of transient ischemic attack (TIA), and cerebral infarction without residual deficits; Z85.44 Personal history of malignant neoplasm of other female genital organs; Z85.01 Personal history of malignant neoplasm of esophagus; Z82.49 Family history of ischemic heart disease and other diseases of the circulatory system; Z79.899 Other long term (current) drug therapy; Z79.890 Hormone replacement therapy; Z79.84 Long term (current) use of oral hypoglycemic drugs; Z88.0 Allergy status to penicillin; Z88.8 Allergy status to other drugs, medicaments and biological substances